=== PATIENT | female | born 1985 | race Caucasian/White ===

== ENCOUNTER 2020-12-05 08:25 | Emergency (ER) | payer BC, SELFPAY ==
[2020-12-05 08:36] VITALS: BP 131/73; PULSE 90; RESP 16; TEMP 36.4; O2SAT 99
--- NOTE | 2020-12-05 08:50 | ED.NAVMDI ---
HPI - Nausea/Vomiting/Diarrhea General Chief complaint: Abdominal Pain Stated complaint: abd pain/diarrhea Time Seen by Provider: 12/05/20 08:51 Source: patient and RN notes reviewed Mode of arrival: ambulatory Limitations: no limitations History of Present Illness HPI Narrative: 35-year-old female presents concern for 5 hours of vomiting and diarrhea. Reports symptoms started this morning. Reports several episodes of vomiting and watery stools. She denies fever, abdominal pain, body aches, chills, sweats. Reports she ate a salad from a restaurant yesterday, otherwise has not eaten anything unusual. Denies anyone else at home has similar symptoms. MD elicited complaint: vomiting Related Data Allergies Allergy/AdvReac Type Severity Reaction Status Date / Time Sulfa (Sulfonamide Allergy Mild Verified 12/05/20 08:53 Antibiotics) sulfamethoxazole Allergy Mild Verified 12/05/20 08:53 cephalexin Allergy Unknown Hives Verified 12/05/20 08:53 sulfamethizole Allergy Unknown Hives Verified 12/05/20 08:53 trimethoprim Allergy Unknown Hives Verified 12/05/20 08:53 Review of Systems Review of Systems: Narrative: CONSTITUTIONAL: Denies malaise, chills, sweats, or fever. ENT: Denies rhinorrhea, congestion, sinus pain, otalgia or sore throat. CARDIOVASCULAR: Denies chest pain, palpitations, or edema. RESPIRATORY: Denies cough or dyspnea. GASTROINTESTINAL: Denies abdominal pain,bloody, or mucous stools. Reports nausea, vomiting, diarrhea, GENITOURINARY: Denies dysuria or hematuria. MUSCULOSKELETAL: Denies myalgia. NEUROLOGIC: Denies numbness, weakness, or headache. All systems reviewed & are unremarkable except as noted in HPI and below PMFSH Family History Family History Father Family history of mental disorder Patient's father is in good health Grandparent Hypertension Mother Patient's mother is in good health Social History Social History Smoking status: Current every day smoker Alcohol intake: current Gender identity (if verbalized by the patient): Female Comments At time of signature, agree with nursing past medical, surgical, social and family history. There is no relevant family history pertinent to the presenting complaint Exam Narrative: Exam Narrative: GENERAL: Well-appearing, well-nourished, and in no acute distress. HEAD: Normocephalic. EYES: PERRLA, conjunctivae clear. NECK: Supple. No lymphadenopathy CHEST: Clear to auscultation. No respiratory distress. HEART: Regular rate and rhythm. ABDOMEN: Soft, nontender upon palpation, nondistended, normal active bowel sounds, no palpable or pulsatile masses, no guarding. No CVA tenderness SKIN: Warm, dry, no rash. NEURO: Alert and oriented x3. PSYCH: Normal mood and affect Course Course Emergency Course: Patient is aware of diagnosis, understands and agrees to treatment plan. Anticipatory guidance given. Patient agrees to follow-up as directed and is aware of reasons to seek care at the emergency department. Portions of this record may have been created with voice recognition software Vital Signs Vital signs: Vital Signs Temperature 97.6 F 12/05/20 08:36 Pulse Rate 90 12/05/20 08:36 Respiratory Rate 16 12/05/20 08:36 Blood Pressure 131/73 12/05/20 08:36 Pulse Oximetry 99 12/05/20 08:36 Temperature 97.6 F 12/05/20 08:36 Pulse Rate 90 12/05/20 08:36 Respiratory Rate 16 12/05/20 08:36 Blood Pressure 131/73 12/05/20 08:36 Pulse Oximetry 99 12/05/20 08:36 Reviewed. MDM - Nausea/Vomiting/Diarrhea MDM Narrative Medical decision making narrative: No evidence of pancreatitis, AAA, cholecystitis, choledocholithiasis, cholangitis, mesenteric ischemia, small bowel obstruction, diverticulitis, colitis, appendicitis, or pelvic etiology such as ovarian/testicular torsion, TOA, or ectopic . Patient casiano
== END 2020-12-05 09:06 | disposition home or self-care (01) ==
PROVIDERS: Emergency Provider Nurse Practitioner
DX: R11.2 Nausea with vomiting, unspecified (principal); R19.7 Diarrhea, unspecified; F17.200 Nicotine dependence, unspecified, uncomplicated
CPT/HCPCS: 99213; G0463

== ENCOUNTER 2023-07-02 13:17 | Outpatient (CLI) | payer BC, SELFPAY | END 2023-07-02 13:18 | disposition home or self-care (01) | PROVIDERS: Visit Provider Obstetrics & Gynecology | DX: N92.0 Excessive and frequent menstruation with regular cycle (principal); Z01.818 Encounter for other preprocedural examination | CPT/HCPCS: 36415; 86850; 86900; 86901 ==

== ENCOUNTER 2023-07-09 02:27 | Day surgery (SDC) | payer BC, SELFPAY ==
[2023-07-02 12:52] VITALS: BMI 33.5
--- NOTE | 2023-07-02 12:58 | PC.NURSE ---
Report to the Outpatient Waiting Room, entrance under the green pavilion located off [facility], at time 6:00 on date 07/09/23. Planned Procedure Time: 7:30. Time changes happen often and if your time is changed the preop area will call you the afternoon before. - You and your visitor will be asked to self-screen and do not enter if you have any COVID symptoms. - A mask is optional within the hospital at this time. Patients may have clear liquids (water, carbonated beverages, clear teas, apple juice) until 3 hours prior to surgery (4:30) with a maximum of 20 ounces. - No food from midnight until time of surgery Take the following medications with a SIP of water the morning of surgery: NONE DO NOT STOP ANY OF YOUR OTHER PRESCRIPTION MEDICATIONS PRIOR TO SURGERY ?EXCEPT THE FOLLOWING Medications to discontinue per physician: N/A Date to take last dose: N/A Please no make-up, nail guamanian, hairspray, perfume, deodorant, or body powder the day of surgery. No jewelry (including any body piercings) or valuables the day of surgery, leave them at home. Please take a shower or bath the night before, or the morning of, surgery with an antibacterial soap. Wear comfortable, loose fitting clothing. - Jewelry must be removed prior to entering the operating room. Rings and piercings that are not removed may be cut off. - The hospital will not accept responsibility for valuables. - Please leave all valuables, including medications, at home the day of surgery. If you are going home after surgery, a licensed box truck driver must drive you home. - NO public transportation without another adult if you receive anesthesia. - We recommend that an adult stay with you for 24 hours following discharge. - We also recommend that you do not drive, make important decision, drink alcoholic beverages, or take any drugs that were not prescribed by your health care provider for at least 24 hours after your discharge time. Follow any additional instructions given to you from your surgeon. If you or anyone in your household have experienced Covid symptoms in the past week, please notify your surgeon or the nurse liaison at the phone number below for possible testing. Telephone instructions given to PT - JORDYN KUMAR and asked if any additional questions and then verbalized understanding. Patient advised to call surgeon office or pre surgery nurse liaison [phone] if any additional questions.
--- NOTE | 2023-07-08 14:02 | WPDANESEPPF ---
Anes - Initial Pre Proc Eval Procedure: Operation Date: 07/09/23 07:30 Proposed Procedures p Robotic Assisted Hysterectomy with Bilateral Salpingectomy - Adore Schwab MD Date/Time: 07/08/23 14:02 Surgeon: Adore Schwab MD Pre Op Diagnosis: menorrhagia Patient Data Age: 37 Gender: F Height: 1.7 m Weight: 97 kg Allergies Allergy/AdvReac Type Severity Reaction Status Date / Time Sulfa (Sulfonamide Allergy Mild Hives Verified 07/02/23 12:51 Antibiotics) sulfamethoxazole Allergy Mild Hives Verified 07/02/23 12:51 cephalexin Allergy Unknown Hives Verified 07/02/23 12:51 sulfamethizole Allergy Unknown Hives Verified 07/02/23 12:51 trimethoprim Allergy Unknown Hives Verified 07/02/23 12:51 Home Medications Medication Instructions Recorded Confirmed Type cetirizine 10 mg tablet (Zyrtec) 10 mg PO DAILY 07/02/23 07/09/23 History dextromethorphan-guaifenesin ER 60 1 tablet PO Q12H PRN Sinus Symptoms 07/02/23 07/09/23 History mg-1,200 mg tab,extend release,12hr (Mucinex DM) Patient hx anesthesia problems: none Family hx anesthesia problems: none Results Review: All pre-operative results and documents have been reviewed as part of the pre-operative evaluation. [facility] Family History Family History Father Family history of mental disorder Patient's father is in good health Grandparent Hypertension Mother Patient's mother is in good health Social History Social History Years smoked: 20 Smoking status: Current every day smoker Tobacco type: cigarettes Alcohol intake: current Alcohol use details: VERY RARE Substance use: never Substance use type: does not use Living arrangements: with family Gender identity (if verbalized by the patient): Female Spiritual care concerns: No Anes - Eval Final PreProcedure Day of Procedure 07/08/23 14:02 Patient weight: obese Heart: regular rate and rhythm Lungs: clear to auscultation Airway: Mallampati scale class II Neurological: alert and oriented Last oral intake: >/= 8 hours ASA classification: II Emergent: no Anesthetic plan: proceed Anesthesia type and monitoring: general ETT and standard monitoring Results Review: All pre-operative results and documents have been reviewed as part of the pre-operative evaluation. Informed Consent: The patient's anesthetic plan and its attendant risks and benefits were discussed with the patient/family/POA. Questions were solicited and answers provided to the satisfaction of the patient/family/POA.
[2023-07-09] VITALS (12 sets, daily range): BP systolic 104–143; BP diastolic 54–89; PULSE 64–88; RESP 14–20; TEMP 36.3–37.1; O2SAT 97–100
[2023-07-09] MEDS: ACETAMINOPHEN 500 MG TABLET 1000 MG PO (06:26)
[2023-07-09] MEDS: LACTATED RINGERS 1,000 ML 30 ML IV CONT ×2 (07:10→09:49)
[2023-07-09] MEDS: KETOROLAC 15 MG/ML VIAL (*BKC) IV PUSH (07:12)
--- NOTE | 2023-07-09 07:13 | WPDHPUPDATE1 ---
History and Physical Update Update Date/Time: 07/09/23 07:13 History and Physical has been reviewed, including an updated exam of the patient. There are NO changes in the patient's condition. Risks, benefits, and alternatives have been discussed and questions answered. Patient agrees to proceed with procedure.
[2023-07-09] MEDS: CLINDAMYCIN 900 MG/D5W 50 ML 900 MG/50 ML PIGGYBACK 50 MG IVPB (07:30)
[2023-07-09] MEDS: GENTAMICIN SULFATE INJ 375 MG in DEXTROSE 5% 100 ML 109.38 MG IVPB (07:40)
--- NOTE | 2023-07-09 09:58 | W.PM.PROC2 ---
Procedure Note - Detailed Date of Procedure 07/09/23 Pre-op Diagnosis Pelvic pain Post-op Diagnosis Same (Endometriosis) Procedure Performed Robot assisted Total hysterectomy with bilateral salpingectomy. Surgeon Aodre Schwab MD Anesthesia General Indications heavy vaginal bleeding, pelvic pain Findings Diffuse scarring and endometriosis throughout the pelvis, rectum adherent to anterior lower pelvis with posterior deep cul-de-sac obliterated. 4-5 endometrial implants in the anterior compartment, normal-appearing ovaries. Description of Procedure This patient was taken to the operating room. She was prepped and draped in the dorsal lithotomy position after induction of general anesthesia. The uterine manipulator and Adrianna cup were placed. This was done with a speculum and tenaculum. The speculum was placed. The cervix was grasped with a tenaculum. The stay sutures were placed at 3 and 9:00 a.m.. The stay sutures of 0 Vicryl were tied to the appropriately Size scope after it was slipped around the cervix.. The tip of the ARMOND manipulator was placed in the intrauterine cavity. The cup was slid into place around the cervix and into the fornices. It was locked into place. The sutures were then wrapped around the handle and tied under tension. A 8 mm skin incision was made in the left upper quadrant the abdomen. a 5 mm Visiport trocar was inserted into abdominal cavity and pneumoperitoneum was achieved. A 8 mm supraumbilical incision was made and a 8 mm trocar was inserted into the intrauterine cavity under direct visualization of the scope. an 8 mm incision was made in the right upper quadrant of the abdomen and an 8 mm robotic trocar was placed the inter uterine cavity under direct visualization the scope. An 11 mm trocar was inserted in the right upper quadrant of the abdomen rectal is a cystoscope after an incision was made there as well. The robot was docked. Electronic Orientation of the robot was performed. Bilateral ureteral lysis was performed. This was done from the pelvic brim down to the uterine artery. This was done with careful dissection using sharp and blunt dissection. The fallopian tubes were removed bilaterally. The mesosalpinx around the fallopian tubes were cauterized transected with LigaSure cautery. This was done in a bilateral fashion from the ovary to the uterine cornua. The fallopian tube was transected at the uterine cornu and amputated. The tube was taken out the left lower quadrant trocar site. In a stepwise fashion along the lateral aspects of the uterus the round ligament and broad ligaments were cauterized transected down to the level of the uterine arteries. A bladder flap was created in the bladder was moved distally to the end of the cervix and over the Adrianna cup. The bilateral uterine arteries were cauterized and transected. Colpotomy was then performed. In a circumferential fashion the vagina was transected using unipolar cautery. The incision was made down on the Adrianna cup. The uterus and cervix were taken out through the vagina. A pneumo occluder was placed in the vagina. The vaginal cuff was closed with a 0 V lock suture in a running fashion. The pelvis was irrigated with copious amounts antibiotic irrigation. The ureters were again examined and found to be intact and flowing freely under the uterine arteries into the bladder. The bladder was intact. It was examined directly. The vagina was irrigated with Betadine solution after removal of the Pneumo occluder. the trocars were removed after the robot was undocked. The skin was closed with subacute or Dermabond. The patient was taken to recovery room. She was stable condition. Sponge lap and needle counts were correct x2. Estimated Blood Loss -25.0 Urine Output -50.0 Drains Yes Packing No Pathology Yes Complications No immediate complications Condition Stable Disposition Floor
[2023-07-09] MEDS: ONDANSETRON INJ 4 MG/2 ML VIAL IV PUSH (10:29)
[2023-07-09] MEDS: diphenhydrAMINE HCl INJ 50 MG/ML VIAL 25 MG IV PUSH ×2 (10:41→10:54)
[2023-07-09] MEDS: SCOPOLAMINE 1.5 MG PATCH TRANSDERM (10:43)
[2023-07-09] MEDS: DEXTROSE 5%/0.45% SOD CHL 1,000 ML 125 ML IV CONT (11:47)
--- NOTE | 2023-07-09 11:49 | OBPPTRN ---
1119 Patient transferred to post room #289 via bed. Support person present. Oriented to unit, room, information board, rooming in, admission packet and security measures. Patient verbalizes understanding.
[2023-07-09] MEDS: KETOROLAC 30 MG/ML VIAL (*BKC) IV PUSH (16:00)
[2023-07-09] MEDS: HYDROcodone/acetaminophen (*CRX) 5-325 MG TABLET 1 TAB PO (20:31)
[2023-07-10 03:54] VITALS: BP 107/62; PULSE 90; TEMP 36.7; O2SAT 98
[2023-07-10] MEDS: HYDROcodone/acetaminophen (*CRX) 5-325 MG TABLET 1 TAB PO ×2 (07:27→12:14)
[2023-07-10] MEDS: IBUPROFEN 600 MG TABLET PO (07:27)
[2023-07-10 07:29] VITALS: BP 120/73; PULSE 81; RESP 18; TEMP 36.9; O2SAT 100
[2023-07-10] MEDS: SIMETHICONE 80 MG TAB.CHEW PO (07:29)
--- NOTE | 2023-07-10 10:09 | WPDANESPN ---
Anes - Prog Note Post-Op Date/Time: 07/10/23 10:09 Cardiovascular status: normal Respiratory status: normal Airway patency: baseline Mental status: baseline Post-Op hydration status: normal Vital Signs: Last Vital Signs Temp 36.7 C 07/10/23 03:54 Pulse 90 07/10/23 03:54 Resp 18 07/09/23 19:00 BP 107/62 07/10/23 03:54 Pulse Ox 98 07/10/23 03:54 O2 Del Method Room Air 07/10/23 04:10 O2 Flow Rate 10 07/09/23 10:00 Pain Score (VAS): 210 I/O: Intake & Output 07/09/23 07/10/23 07/10/23 23:59 07:59 15:59 Intake Total 1000 1100 Output Total 2500 400 Balance -1500 700 Post-procedural complaints: nausea (nausea in PACU. treated effectively. ) Patient Feedback: Patient satisfied with anesthetic care.
--- NOTE | 2023-07-10 10:37 | PM.GYNPNOP ---
COAT AGENT - A/P Postoperative Procedures: Procedures Operation Date: 07/09/23 07:30 Actual Procedure Side Surgeon p Robotic Assisted Hysterectomy with Bilateral Salpingectomy Bilateral Adore Schwab MD Postoperative day: 1 Postoperative status: doing well Postoperative plan: see orders Time Spent With Patient Time: Total time spent is greater than 50% in coordination of care (as documented) at patient's floor/unit and/or counseling patient: Time with patient: less than 15 minutes COAT AGENT- PN:Subj Post-Op Subjective Date/time seen: 07/10/23 10:37 Subjective: patient reports feeling better, patient has no complaints and pain is well controlled Exam Const: General: healthy appearing, comfortable and no acute distress Resp: Auscultation: clear to auscultation bilaterally, no rales, no rhonchi and no wheezes Cardio: Rate: regular rate Heart sounds: no click, no murmurs and no rubs GI: Inspection: non-distended Auscultation: normal bowel sounds Extrem: General: normal to inspection, no pedal edema and no calf tenderness COAT AGENT - PN: Obj Data Vital Signs Vital Signs: Vital Signs - 24 hr 07/09/23 11:00 07/09/23 11:10 07/09/23 10:45 Temperature Pulse Rate 82 67 65 Respiratory Rate 14 20 20 Blood Pressure 135/84 143/86 H 130/79 Pulse Oximetry 100 100 99 Oxygen Delivery Room Air Room Air Room Air 07/09/23 11:50 07/09/23 19:00 07/09/23 20:04 Temperature 97.3 F L Pulse Rate 64 Respiratory Rate 16 Blood Pressure 126/84 Pulse Oximetry 100 Oxygen Delivery Room Air Room Air 07/09/23 16:00 07/09/23 16:00 07/09/23 19:00 Temperature 98.8 F 97.6 F Pulse Rate 81 75 Respiratory Rate 18 18 Blood Pressure 136/82 110/66 Pulse Oximetry 97 99 Oxygen Delivery Room Air 07/09/23 23:50 07/10/23 00:00 07/10/23 03:54 Temperature 98.2 F 98.1 F Pulse Rate 77 90 Respiratory Rate Blood Pressure 104/54 L 107/62 Pulse Oximetry 98 98 Oxygen Delivery Room Air 07/10/23 04:10 Temperature Pulse Rate Respiratory Rate Blood Pressure Pulse Oximetry Oxygen Delivery Room Air Intake/Output Intake/Output: Intake & Output 07/07/23 07/08/23 07/09/23 07/10/23 23:59 23:59 23:59 23:59 Intake Total 2279.375 1100 Output Total 2500 400 Balance -220.625 700 Meds/Results Medications: Active Medications Generic Name Dose Route Start Last Admin Trade Name Freq PRN Reason Stop Dose Admin Acetaminophen 650 mg 07/09/23 11:14 Acetaminophen 325 Mg Tablet PO Q6H PRN Mild Pain (1-3) Hydrocodone Bitart/Acetaminophen 1 tab 07/09/23 11:14 Hydrocodone/Acetaminophen (*Crx) 10-325 Mg Tablet PO Q3H PRN Pain Rated 7-10 Hydrocodone Bitart/Acetaminophen 1 tab 07/09/23 11:14 07/10/23 07:27 Hydrocodone/Acetaminophen (*Crx) 5-325 Mg Tablet PO 1 tab Q3H PRN Administration Moderate Pain (4-6) Bisacodyl 10 mg 07/09/23 11:14 Bisacodyl 10 Mg Suppository RECTAL ONCE PRN Constipation Emollient Ointment 1 applic 07/09/23 11:14 Lanolin (Lansinoh) 7.5 Gm Cream TOPICAL PRN PRN Sore Nipples Dextrose/Sodium Chloride 1,000 mls @ 125 mls/hr 07/09/23 11:14 07/09/23 19:47 Dextrose 5% Sodium Chloride 0.45% IV CONT Infused .Q8H GA Infusion Potassium Chloride/Dextrose/Sod Cl 1,000 mls @ 125 mls/hr 07/09/23 11:14 Kcl 20 Meq/D5/0.45% Sod Chl IV CONT .Q8H GA Ibuprofen 600 mg 07/09/23 11:14 07/10/23 07:27 Ibuprofen 600 Mg Tablet PO 600 mg Q6H PRN Administration Cramping Ketorolac Tromethamine 30 mg 07/09/23 11:14 07/09/23 16:00 Ketorolac 30 Mg/Ml Vial (*Bkc) IV PUSH 30 mg Q6H PRN Administration Pain Rated 4-6 Naloxone HCl 0.1 mg 07/09/23 11:14 Naloxone Hcl 0.4 Mg/Ml Vial IV PUSH Q2M PRN Opiate Reversal Ondansetron HCl 4 mg 07/09/23 11:14 Ondansetron Inj 4 Mg/2 Ml Vial IV PUSH Q6H PRN Nausea Vit/Calcium/Iron/Folic Ac 1 tab 07/10/23
== END 2023-07-10 14:59 | disposition home or self-care (01) ==
LOC: ANHSURGERY 10:45 → ANHOB2 11:17
PROVIDERS: Visit Provider Obstetrics & Gynecology
PROC: (CPT 58571; principal; 2023-07-09 07:30)
DX: N80.00 Endometriosis of the uterus, unspecified (principal); N80.03 Adenomyosis of the uterus
CPT/HCPCS: 58571; S2900; 88307; 99199; A9270; J1100; J1170; J1200; J1580; J1885; J2250; J2405; J2704; J3010; J7030; J7120

== ENCOUNTER 2023-07-23 17:37 | Inpatient (IN) | payer BC, SELFPAY ==
--- NOTE | ~2023-07-23 | CT_ITS ---
EXAMINATION: CT abdomen pelvis w con DATE: 07/24/2023 09:05 INDICATION: Abdominal pain TECHNIQUE: Computed tomography (CT) of the abdomen and pelvis was performed with 100 mL Omnipaque-350 intravenous contrast. Automated exposure control and iterative reconstruction technique were employe d. The dose-length product was 1061.21 mGy-cm. COMPARISON: None FINDINGS: Mild dependent atelectasis in the bilateral lower lobes. Arch size is normal. No pericardial or pleur al effusion. A few subcentimeter low-attenuation likely cysts scattered throughout the liver which ar e too small to definitively characterize. Gallbladder, spleen, pancreas, bilateral adrenal glands and kidneys are normal. Bladder is normal. The uterus is not identified and there is trace amount of flu id and mild stranding at the uterine fossa likely relate to the reported recent hysterectomy. No free intraperitoneal gas or loculated fluid collections to suggest hematoma or abscess.. Bilateral adnexa are unremarkable. Bowels including the appendix are normal. Small fat-containing umbilical hernia. N o pathologically enlarged abdominal or pelvic lymphadenopathy. Subtle stranding along a laparoscopy p ort tracks in the anterior abdominal wall. L3-L5 anterior spinal fusion with interbody fusion devices . L5 is sacralized bilaterally. IMPRESSION: 1. Trace amount of fluid and mild stranding at the uterine fossa consistent with reported history of recent hysterectomy. No other acute intra-abdominal/pelvic process. Reviewed, dictated and finalized at location A. [facility] IMPRESSION: 1. Trace amount of fluid and mild stranding at the uterine fossa consistent wit h reported history of recent hysterectomy. No other acute intra-abdominal/pelvi c process.
--- NOTE | 2023-07-23 18:00 | ADMGEN ---
This patient, Shirlene Price, was admitted to 2 Medical Room 254-01. Patient/family oriented to hospital policies and general routines including ID bracelet, bed and alarms, visiting hours, pain management, procedures, bathroom and other care routines, personal items, smoking policy, room service/diet, and visiting hours. Information on how to activate the Rapid Response Team has been discussed. Patient/Family are encouraged to report perceived risks to care and to ask questions if they do not understand what they are told or what they should do.
[2023-07-23 18:15] VITALS: BP 130/78; PULSE 81; RESP 16; TEMP 37.3; O2SAT 100
[2023-07-23 18:19] VITALS: BMI 34.3
[2023-07-23 18:28] VITALS: PULSE 68; RESP 18; O2SAT 98
[2023-07-23 19:52] VITALS: BP 115/66; PULSE 73; RESP 16; TEMP 36.7; O2SAT 99
[2023-07-23 20:00] VITALS: PULSE 73; RESP 16; O2SAT 99
[2023-07-23] MEDS: SODIUM CHLORIDE 0.9% IV 1,000 ML 125 ML IV CONT (20:36)
[2023-07-23] MEDS: oxyCODONE/ACETAMINOPHEN (*CRX) 5-325 MG TABLET 1 TABLET PO (23:36)
--- NOTE | 2023-07-24 00:07 | PC.NURSE ---
Pt called me into the bathroom to observe spotting. Found a small amount in toilet. Pt is also still cramping even after a dose of pain medication. Advised to walk around if comfortable.
[2023-07-24] MEDS: oxyCODONE/ACETAMINOPHEN (*CRX) 5-325 MG TABLET 1 TABLET PO ×4 (03:29→22:52)
[2023-07-24] MEDS: SODIUM CHLORIDE 0.9% IV 1,000 ML 125 ML IV CONT ×2 (03:29→15:37)
[2023-07-24 05:35] VITALS: BP 120/64; PULSE 79; RESP 16; TEMP 36.5; O2SAT 98
[2023-07-24 05:54] LABS: Basophils Absolute Auto 0.1 K/mm3 (0.0-0.1); Basophils Percent Auto 0.6 % (0.2-1.2); Eosinophils Absolute Auto 0.3 K/mm3 (0-0.3); Eosinophils Percent Auto 3.7 % (0-4.4); Hemoglobin 11.8 g/dL (12.0-15.0); Immature Granulocyte Absolute 0.02 K/mm3 (0.00-0.031); Immature Granulocyte Percent A 0.2 % (0-0.5); Lymphocytes Absolute Auto 3.12 K/mm3 (0.9-3.2); Lymphocytes Percent Auto 38.8 % (18.3-44.2); Mean Corpuscular HGB Conc 32.8 g/dl (32-36); Mean Corpuscular Hemoglobin 29.6 pg (26-34); Mean Corpuscular Volume 90.5 fl (80-100); Mean Platelet Volume 12.1 fl (7.4-10.4); Monocytes Absolute Auto 0.6 K/mm3 (0.1-0.6); Monocytes Percent Auto 7.2 % (2.6-8.5); Neutrophils Percent Auto 49.5 % (45.5-73.1); Platelet Count Result 176 k/mm3 (150-375); Red Blood Count 3.98 M/mm3 (4.2-5.4); White Blood Count 8.1 K/mm3 (4.5-10.0)
[2023-07-24 06:02] LABS: Alanine Aminotransferase 46 U/L (6-35); Albumin Level 3.2 g/dL (3.5-5.1); Alkaline Phosphatase 65 U/L (38-126); Anion Gap 4 mmol/L (8-16); Aspartate Amino Transferase 27 U/L (14-36); Bilirubin,Total 0.2 mg/dL (0.2-1.3); Blood Urea Nitrogen 13 mg/dL (7-17); Calcium 8.8 mg/dL (8.4-10.2); Carbon Dioxide 25 mmol/L (22-30); Chloride 110 mmol/L (98-107); Estimated CRCL calculation 100 ml/min; Estimated Glomerular Filt Rate > 60; Glucose 101 mg/dL (65-110); Potassium 4.1 mmol/L (3.4-5.0); Sodium 139 mmol/L (137-145)
--- NOTE | 2023-07-24 08:07 | PM.IMHP ---
H&P: HPI History of Present Illness Date/Time: 07/24/23 08:07 Chief Complaint: 37-year-old female who is 2 weeks postop from a total laparoscopic hysterectomy. She has severe lower abdominal cramping. Initially was with bowel movements and now intermittently great frequency, Multiple times an hour. She denies any nausea, vomiting, fever, chills. She denies any chest pain shortness of breath. She denies any vaginal bleeding. She does have hattie blood in her urine now. She denies any diarrhea. She had pain with bowel movements for some time , 1-2 weeks, and this existed some prior to the surgery. she denies regular bowel movements well formed stools. Review of Systems Review of Systems: All systems reviewed & are unremarkable except as noted in HPI and below Constitutional: Constitutional: Denies chills, Denies fatigue, Denies fever(s) and Denies weakness Eyes: Eyes: Denies blurry vision, Denies change in vision, Denies loss of peripheral vision, Denies loss of vision, Denies other visual disturbances and Denies eye pain ENT: Denies vertigo, Denies dizziness, Denies hearing loss, Denies mouth pain, Denies nasal obstruction, Denies neck mass and Denies neck pain Cardiovascular: Cardiovascular: Denies chest pain, Denies diaphoresis, Denies syncope, Denies leg edema and Denies dyspnea Respiratory: Respiratory: Denies chest congestion, Denies cough, Denies hemoptysis, Denies dyspnea and Denies wheezing Gastrointestinal: Gastrointestinal: Denies abdominal pain, Denies constipation, Denies diarrhea, Denies nausea and Denies vomiting Genitourinary: Genitourinary: Denies hematuria, Denies change in libido, Denies nocturia, Denies genital lesions, Denies flank pain and Denies urinary urgency Musculoskeletal: Musculoskeletal: Denies abnormal gait, Denies back pain, Denies myalgias, Denies arthralgias, Denies joint swelling, Denies muscle weakness and Denies neck pain Integumentary/Breasts: Skin/Breast: Denies swelling, Denies breast pain, Denies breast mass, Denies dry skin, Denies nipple discharge, Denies unusual bruising and Denies jaundice Neurologic: Denies Neuro-related abnormal movements, Denies Abnormal speech present, Denies abnormal gait, Denies behavioral changes, Denies confusion, Denies vertigo, Denies dizziness, Denies syncope, Denies loss of vision, Denies memory loss, Denies convulsions and Denies weakness Psychiatric: Psychiatric: Denies abnormal sleep pattern, Denies behavioral changes, Denies change in libido, Denies confusion, Denies depression, Denies anhedonia and Denies memory loss Endocrine: Endocrine: Reports no additional endocrine complaints, Denies change in libido and Denies fatigue Hematologic/Lymphatic: Hematologic/Lymphatic: Reports no additional hematologic/lymphatic complaints Allergic/Immunologic: Allergic/Immunologic: Reports no additional allergic/immunologic complaints and Denies wheezing PMFSH Family History Family History Father Family history of mental disorder Patient's father is in good health Grandparent Hypertension Mother Patient's mother is in good health Social History Social History Years smoked: 20 Smoking status: Current every day smoker Tobacco type: cigarettes Alcohol intake: never Alcohol use details: VERY RARE Substance use: never Substance use type: does not use Lack of Transportation: No Lack of Food: Never True Current Housing: I Have Housing Concerned About Future Housing: No Difficulty Paying Gas/Electric Bills: No Difficulty Paying for Meds: No Currently Unemployed: No Education: High School Diploma/GED Difficulty w/ Childcare or Family Care: No Living arrangements: with family Gender identity (if verbalized by the patient): Female Spiritual care concerns: No Meds Home Medications and Allergies Home Medications Medi
--- NOTE | 2023-07-24 08:40 | WPDGICN ---
Assessment and Plan Assessment and plan (1) Abdominal pain: Code(s): R10.9 - Unspecified abdominal pain Status: Acute Assessment and Plan: this pain is postoperative. She describes what sounds like a somewhat involved surgical procedure. Unfortunately the pain actually is getting worse instead of better , contrary to what 1 would expect. It was initially associated with bowel movements but is continuous now. She has softer stools but has used some laxatives thinking he would give her relief. There has b (2) Endometriosis: Code(s): N80.9 - Endometriosis, unspecified Status: Acute Assessment and Plan: This was diagnosed at the time of her recent hysterectomy. She also had her left ovary removed at that time. Endometrial tissue was seen on her sigmoid colon. Plan She is scheduled for CT scan. I will order a stool for occult blood. I told her that I do not think that she is going to need a colonoscopy at this time. GI Consult Note Consult date/time: 07/24/23 08:40 HPI: Shirlene Price is a 37 year old female Who underwent a hysterectomy about 2 weeks ago. She states that she was found at that time to have endometriosis which was unknown prior to that. It required removal of endometrial tissue from her colon and other structures. Since then time she has had cramping in her lower abdomen. Is a tight sensation and burning sensation across the pelvis. It was generally worse prior to a bowel movement and during a bowel movement it would seem does let up afterwards. Now however for the past couple of days it is constant. She has taken laxatives thinking that would help. Her stools have been soft. She has had no blood her stools. Prior to this she had no problems with bowel movements. She has had no other gastrointestinal symptoms such as nausea vomiting severe heartburn dysphagia or chronic abdominal pains. She was ordering breakfast as I examine her and states that she has a good appetite and is hungry. Review of Systems Review of Systems: All systems reviewed & are unremarkable except as noted in HPI and below [facility] Family History Family History Father Family history of mental disorder Patient's father is in good health Grandparent Hypertension Mother Patient's mother is in good health Social History Social History Years smoked: 20 Smoking status: Current every day smoker Tobacco type: cigarettes Alcohol intake: never Alcohol use details: VERY RARE Substance use: never Substance use type: does not use Lack of Transportation: No Lack of Food: Never True Current Housing: I Have Housing Concerned About Future Housing: No Difficulty Paying Gas/Electric Bills: No Difficulty Paying for Meds: No Currently Unemployed: No Education: High School Diploma/GED Difficulty w/ Childcare or Family Care: No Living arrangements: with family Gender identity (if verbalized by the patient): Female Spiritual care concerns: No Meds Home Medications and Allergies Home Medications Medication Instructions Recorded Confirmed Type cetirizine 10 mg tablet (Zyrtec) 10 mg PO DAILY 07/02/23 07/23/23 History dextromethorphan-guaifenesin ER 60 1 tablet PO Q12H PRN Sinus Symptoms 07/02/23 07/23/23 History mg-1,200 mg tab,extend release,12hr (Mucinex DM) oxycodone-acetaminophen 5 mg-325 1 tablet PO Q4H PRN pain #25 tabs 07/10/23 07/23/23 Rx mg tablet Allergies Allergy/AdvReac Type Severity Reaction Status Date / Time Sulfa (Sulfonamide Allergy Mild Hives Verified 07/23/23 18:16 Antibiotics) sulfamethoxazole Allergy Mild Hives Verified 07/23/23 18:16 cephalexin Allergy Unknown Hives Verified 07/23/23 18:16 sulfamethizole Allergy Unknown Hives Verified 07/23/23 18:16 trimethoprim Allergy Unknown Hives Verified 07/23/23 18:16
[2023-07-24] MEDS: metroNIDAZOLE 500 MG/ISO 100ML 500 MG/100 ML BAG 100 MG IVPB ×2 (09:18→17:11)
[2023-07-24 09:19] VITALS: RESP 16; O2SAT 98
[2023-07-24] MEDS: LORATADINE 10 MG TABLET PO (09:19)
[2023-07-24] MEDS: CIPROFLOXACIN 400 MG/D5W 200ML 200 ML 200 MG IVPB ×2 (10:28→22:52)
[2023-07-24 11:24] VITALS: PULSE 79; RESP 16; O2SAT 98
--- NOTE | 2023-07-24 12:56 | PC.NURSE ---
On 07/24/23, the student, [Ever Domínguez], provided care and completed [facility] documentation on this patient. I have reviewed the student's documentation and agree with the findings.
[2023-07-24 14:18] VITALS: BP 127/78; PULSE 68; RESP 18; TEMP 37; O2SAT 100
[2023-07-24 18:47] LABS: IFOB Positive Control Positive; Immunochemical Fecal Occult Bl Positive (N)
[2023-07-24 22:00] VITALS: BP 119/69; PULSE 85; RESP 14; TEMP 36.2; O2SAT 100
[2023-07-25] MEDS: metroNIDAZOLE 500 MG/ISO 100ML 500 MG/100 ML BAG 100 MG IVPB ×3 (02:57→17:55)
[2023-07-25 04:03] VITALS: BP 130/92; PULSE 72; RESP 18; TEMP 36.1; O2SAT 100
[2023-07-25] MEDS: LORATADINE 10 MG TABLET PO (09:34)
[2023-07-25] MEDS: CIPROFLOXACIN 400 MG/D5W 200ML 200 ML 200 MG IVPB ×2 (09:35→21:16)
[2023-07-25] MEDS: ONDANSETRON INJ 4 MG/2 ML VIAL IV PUSH (10:51)
--- NOTE | 2023-07-25 13:21 | PM.GYNPNOP ---
CENTRAL SUPPLY ASSISTANT - A/P Time Spent With Patient Time: Total time spent is greater than 50% in coordination of care (as documented) at patient's floor/unit and/or counseling patient: Time with patient: 15 - 25 minutes CENTRAL SUPPLY ASSISTANT- PN:Nichelle Post-Op Subjective Date/time seen: 07/25/23 13:21 Nausea vomiting today, this is new, blood in her stool today , this is also new. normal CT yesterday, no evidence of abscess or hematoma. Urinary tract infections being treated with IV antibiotics. Await more information from gastrointestinal Consult. Continue observation and supportive care. CENTRAL SUPPLY ASSISTANT - PN: Obj Data Vital Signs Vital Signs: Vital Signs - 24 hr 07/24/23 14:18 07/24/23 20:00 07/24/23 22:00 Temperature 98.6 F 97.1 F L Pulse Rate 68 85 Respiratory Rate 18 14 Blood Pressure 127/78 119/69 Pulse Oximetry 100 100 Oxygen Delivery Room Air 07/25/23 04:03 07/25/23 09:40 Temperature 96.9 F L Pulse Rate 72 Respiratory Rate 18 Blood Pressure 130/92 H Pulse Oximetry 100 Oxygen Delivery Room Air Intake/Output Intake/Output: Intake & Output 07/22/23 07/23/23 07/24/23 07/25/23 23:59 23:59 23:59 23:59 Intake Total 3890 910 Balance 3890 910 Meds/Results Medications: Active Medications Generic Name Dose Route Start Last Admin Trade Name Freq PRN Reason Stop Dose Admin Acetaminophen 650 mg 07/23/23 19:30 Acetaminophen 325 Mg Tablet PO Q4H PRN Mild Pain (1-3) or Fever Cyclobenzaprine HCl 10 mg 07/25/23 12:24 Cyclobenzaprine Hcl 10 Mg Tablet PO Q8H PRN Muscle Spasm Sodium Chloride 1,000 mls @ 125 mls/hr 07/23/23 19:45 07/25/23 02:30 Normal Saline Iv IV CONT 125 mls/hr .Q8H GA Infusion Ciprofloxacin/Dextrose 200 mls @ 200 mls/hr 07/24/23 09:00 07/25/23 10:35 Cipro 400 Mg/D5w 200 Ml IVPB Infused Q12H GA Infusion Metronidazole 500 mg in 100 mls @ 100 mls/hr 07/24/23 10:00 07/25/23 11:51 Flagyl 500 Mg/Iso Soln 100 Ml IVPB Infused Q8H GA Infusion Loratadine 10 mg 07/24/23 09:00 07/25/23 09:34 Loratadine 10 Mg Tablet PO 10 mg DAILY GA Administration Ondansetron HCl 4 mg 07/23/23 19:30 07/25/23 10:51 Ondansetron Inj 4 Mg/2 Ml Vial IV PUSH 4 mg Q4H PRN Administration Nausea And Vomiting Oxycodone/Acetaminophen 1 tablet 07/23/23 19:29 07/24/23 22:52 Oxycodone/Acetaminophen (*Crx) 5-325 Mg Tablet PO 1 tablet Q4H PRN Administration Pain Rated 7-10 Radiology Results: ITS Impressions Abdomen/Pelvis CT 07/24/23 09:08 IMPRESSION: 1. Trace amount of fluid and mild stranding at the uterine fossa consistent with reported history of recent hysterectomy. No other acute intra-abdominal/pelvic process. Labs 07/24/23 05:40 07/24/23 05:40 Labs: Laboratory Results - last 24 hr 07/24/23 18:01 Stl Occult Blood (IFOB) Positive H
[2023-07-25] MEDS: CYCLOBENZAPRINE HCL 10 MG TABLET PO ×2 (13:28→23:09)
[2023-07-25 14:00] VITALS: BP 109/54; PULSE 68; TEMP 36.4; O2SAT 99
[2023-07-25] MEDS: SODIUM CHLORIDE 0.9% IV 1,000 ML 125 ML IV CONT (15:21)
[2023-07-25 17:50] LABS: Lipase 99 U/L (23-300)
--- NOTE | 2023-07-25 18:09 | WPDGIPROGNO ---
Progress Note: A&P Assessment and Plan (1) Abdominal pain: Code(s): R10.9 - Unspecified abdominal pain Status: Acute Assessment and Plan: this pain is postoperative, It was not there before surgery.. She describes what sounds like a somewhat involved surgical procedure. Unfortunately the pain actually is getting worse instead of better , contrary to what 1 would expect. It was initially associated with bowel movements but is continuous now. She has softer stools but has used some laxatives thinking That would give her relief. the pain has not changed today. Earlier it became more severe and that resulted in her becoming queasy diaphoretic and then she vomited. (2) Endometriosis: Code(s): N80.9 - Endometriosis, unspecified Status: Acute Assessment and Plan: This was diagnosed at the time of her recent hysterectomy. She also had her left ovary removed at that time. Endometrial tissue was seen on her sigmoid colon. (3) Hematochezia: Code(s): K92.1 - Melena Status: Acute Assessment and Plan: she saw some red blood her stools last night and this morning. A stool Hemoccult was positive. She had nothing prior to her surgery that would suggest inflammatory bowel disease. A colonoscopy may be necessary. She is however 2 nauseated now to even attempt a prep. (4) Nausea and vomiting: Code(s): R11.2 - Nausea with vomiting, unspecified Status: Acute Assessment and Plan: this is new today and began after she had somewhat of a vagal reaction when pain intensified. She had been started on metronidazole which also could cause some nausea. Ondansetron helped. I told her to feel free to ask for whenever she is queasy. Plan She is scheduled for CT scan. I will order a stool for occult blood. I told her that I do not think that she is going to need a colonoscopy at this time. The CT scan was negative for anything acute except that there was some slight pelvic fluid. No evidence of gastrointestinal disease on the scan. Watch for further bleeding. She may require at some point a colonoscopy. Her pain which is deep in the pelvis and bilateral I am certain is postoperative. I explained that there is not a digestive disease that would suddenly come on with pain like that without showing something on CT. Subjective Date/time seen: 07/25/23 18:09 Today she developed nausea and had some emesis this morning. She did not have that prior to admission. When she vomits she has excruciating pain in the pelvis. She receives Zofran this morning and has not asked for since. I switched to a clear liquid diet. She states that for lunch when she was on regular diet she only had soup and yogurt was afraid to eat the rest. Now her pain is back to baseline with constant discomfort in the lower abdomen. She also has seen blood her stools. She recall seen some last night when she was taking a shower and again this morning passed some blood. I performed Hemoccult that was positive for blood. She has no prior history of colitis. Her bowels have not changed. Her stools have been softer though she has been taking a stool softener since her surgery. Her family was present at bedside they stated there is no family history of intestinal disorders, colitis, etcetera. Exam Const: General: cooperative and healthy appearing Nutritional Appearance: overweight Orientation/consciousness: patient oriented x3 HENMT: Head: normal to inspection Ears: hearing grossly normal bilaterally Mouth: Yes Normal oral and palatal mucosa present Eyes: General: appearance normal, both eyes and all related structures Neck: Neck: normal visual inspection Chest: Chest palpation & inspection: normal inspection of the chest Resp: Effort & Inspection: normal respiratory effort Auscultation: clear to auscultation bilaterally Cardio: Rate: regular rate Rhythm: regular rhythm GI: Inspectio
[2023-07-25 19:35] VITALS: BP 123/71; PULSE 66; RESP 18; TEMP 36.8; O2SAT 98
[2023-07-26] MEDS: SODIUM CHLORIDE 0.9% IV 1,000 ML 125 ML IV CONT ×2 (01:20→09:53)
[2023-07-26] MEDS: metroNIDAZOLE 500 MG/ISO 100ML 500 MG/100 ML BAG 100 MG IVPB ×2 (01:20→10:41)
[2023-07-26 06:00] VITALS: BP 137/82; PULSE 71; RESP 18; TEMP 36.6; O2SAT 100
--- NOTE | 2023-07-26 09:03 | WPDGIPROGNO ---
Progress Note: A&P Assessment and Plan (1) Abdominal pain: Code(s): R10.9 - Unspecified abdominal pain Status: Acute Assessment and Plan: this pain is postoperative, It was not there before surgery.. She describes what sounds like a somewhat involved surgical procedure. Unfortunately the pain actually is getting worse instead of better , contrary to what 1 would expect. It was initially associated with bowel movements but is continuous now. She has softer stools but has used some laxatives thinking That would give her relief. the pain has not changed today. Earlier it became more severe and that resulted in her becoming queasy diaphoretic and then she vomited. although her pain persisted is more tolerable. She did sleep fairly well. No more vomiting (2) Endometriosis: Code(s): N80.9 - Endometriosis, unspecified Status: Acute Assessment and Plan: This was diagnosed at the time of her recent hysterectomy. She also had her left ovary removed at that time. Endometrial tissue was seen on her sigmoid colon. I will order ibuprofen for pain control which also may be helpful for pelvic inflammation. (3) Hematochezia: Code(s): K92.1 - Melena Status: Acute Assessment and Plan: she saw some red blood her stools last night and this morning. A stool Hemoccult was positive. She had nothing prior to her surgery that would suggest inflammatory bowel disease. A colonoscopy may be necessary. She is however 2 nauseated now to even attempt a prep. no bowel movement yet this morning and no further bleeding noted. I have ordered a procalcitonin to rule out infection. (4) Nausea and vomiting: Code(s): R11.2 - Nausea with vomiting, unspecified Status: Acute Assessment and Plan: this is new today and began after she had somewhat of a vagal reaction when pain intensified. She had been started on metronidazole which also could cause some nausea. Ondansetron helped. I told her to feel free to ask for whenever she is queasy. Plan She is scheduled for CT scan. I will order a stool for occult blood. I told her that I do not think that she is going to need a colonoscopy at this time. The CT scan was negative for anything acute except that there was some slight pelvic fluid. No evidence of gastrointestinal disease on the scan. Watch for further bleeding. She may require at some point a colonoscopy. Her pain which is deep in the pelvis and bilateral I am certain is postoperative. I explained that there is not a digestive disease that would suddenly come on with pain like that without showing something on CT. Subjective Date/time seen: 07/26/23 09:03 no vomiting since yesterday. She has tolerated liquid diet. She is willing to try eating solid food. Pelvic pain remains unchanged, steady pain occasionally searing, across the low abdomen/ pelvis. No bowel movement so far this morning. I have ordered Colace for her she said that when she awoke this morning she was sweaty as if breaking a fever. That was 1 time And has passed. Exam Const: General: cooperative, healthy appearing, alert and awake Nutritional Appearance: overweight Orientation/consciousness: patient oriented x3 HENMT: Head: normal to inspection Ears: hearing grossly normal bilaterally Mouth: Yes Normal oral and palatal mucosa present Eyes: General: appearance normal, both eyes and all related structures Neck: Neck: normal visual inspection Chest: Chest palpation & inspection: normal inspection of the chest Resp: Effort & Inspection: normal respiratory effort Auscultation: clear to auscultation bilaterally Cardio: Rate: regular rate Rhythm: regular rhythm GI: Inspection: normal to inspection Auscultation: normal bowel sounds Other: Surprisingly, she is not tender to palpation. She had a pain shot 3-1/2 hours prior to me seeing her and she had told me that the pain was b
[2023-07-26] MEDS: LORATADINE 10 MG TABLET PO (09:45)
[2023-07-26] MEDS: CIPROFLOXACIN 400 MG/D5W 200ML 200 ML 200 MG IVPB (09:45)
[2023-07-26] MEDS: DOCUSATE SODIUM 100 MG CAPSULE PO (09:45)
--- NOTE | 2023-07-26 13:18 | PM.GYNPNOP ---
GASKET FORMER - A/P Assessment and plan (1) Hematochezia: Code(s): K92.1 - Melena Status: Acute (2) Dyschezia: Code(s): K59.00 - Constipation, unspecified Status: Acute (3) Cystitis: Code(s): N30.90 - Cystitis, unspecified without hematuria Status: Acute (4) Abdominal pain: Code(s): R10.9 - Unspecified abdominal pain Status: Acute Plan Improved dyschezia, to discharge today with muscle relaxers and stool softener. Discussed treatment options in the future for endometriosis causing pain in the rectum and posterior vagina. Considering Lupron versus surgery. Time Spent With Patient Time: Total time spent is greater than 50% in coordination of care (as documented) at patient's floor/unit and/or counseling patient: Time with patient: 15 - 25 minutes GASKET FORMER- PN:Nichelle Post-Op Subjective Date/time seen: 07/26/23 13:18 Interval history: improved pain with BM today, associated with use of muscle relaxers. Tolerating p.o., no nausea, vomiting, fever, chills. Had a night sweat this morning. Exam Const: General: cooperative, healthy appearing, comfortable and no acute distress Orientation/consciousness: oriented to person, oriented to place and oriented to time HENMT: Head: normal to inspection Ears: external ears normal Face/Nose/Sinus: Normal external nose present and normal facial exam Face and sinus: normal facial exam Eyes: General: appearance normal, both eyes and all related structures Neck: Neck: normal visual inspection, trachea midline and supple Resp: Auscultation: clear to auscultation bilaterally, no crackles, no rales, no rhonchi and no wheezes Cardio: Rate: regular rate Rhythm: regular rhythm Heart sounds: no click, no murmurs and no rubs GI: GI Palp: No abdominal tenderness, No Soft to palpation, No Tenderness to palpation present (GI) and No Palpable mass present Auscultation: normal bowel sounds Skin: General skin exam: normal color and no rashes or lesions noted Neuro: General: oriented to person, oriented to place and oriented to time Extrem: General: normal to inspection, no joint enlargement, no clubbing, cyanosis or edema, no pedal edema and no calf tenderness Psych: Appearance: grossly normal Mental Status: mental status grossly normal Speech and movement: Normal speech and movement present GASKET FORMER - PN: Obj Data Vital Signs Vital Signs: Vital Signs - 24 hr 07/25/23 14:00 07/25/23 19:35 07/25/23 20:00 Temperature 97.6 F 98.3 F Pulse Rate 68 66 Respiratory Rate 18 Blood Pressure 109/54 L 123/71 Pulse Oximetry 99 98 Oxygen Delivery Room Air 07/26/23 06:00 Temperature 97.8 F Pulse Rate 71 Respiratory Rate 18 Blood Pressure 137/82 Pulse Oximetry 100 Oxygen Delivery Intake/Output Intake/Output: Intake & Output 07/23/23 07/24/23 07/25/23 07/26/23 23:59 23:59 23:59 23:59 Intake Total 3890 4050 2017 Balance 3890 4050 2018 Meds/Results Medications: Active Medications Generic Name Dose Route Start Last Admin Trade Name Freq PRN Reason Stop Dose Admin Acetaminophen 650 mg 07/23/23 19:30 Acetaminophen 325 Mg Tablet PO Q4H PRN Mild Pain (1-3) or Fever Cyclobenzaprine HCl 10 mg 07/25/23 12:24 07/25/23 23:09 Cyclobenzaprine Hcl 10 Mg Tablet PO 10 mg Q8H PRN Administration Muscle Spasm Docusate Sodium 100 mg 07/26/23 09:00 07/26/23 09:45 Docusate Sodium 100 Mg Capsule PO 100 mg DAILY GA Administration Sodium Chloride 1,000 mls @ 125 mls/hr 07/23/23 19:45 07/26/23 09:53 Normal Saline Iv IV CONT 125 mls/hr .Q8H GA Administration Ciprofloxacin/Dextrose 200 mls @ 200 mls/hr 07/24/23 09:00 07/26/23 10:45 Cipro 400 Mg/D5w 200 Ml IVPB Infused Q12H GA Infusion Metronidazole 500 mg in 100 mls @ 100 mls/hr 07/24/23 10:00 07/26/23 11:41 Flagyl 500 Mg/Iso Soln 100 Ml IVPB Infused Q8H GA Infusion Ibuprofen 400 mg 07/26/23 09:01 Ibuprofen
--- NOTE | 2023-07-26 13:21 | P.DS_ITS ---
DS: Admitting Diagnosis Discharge Date July 26, 2023 Admitting Diagnosis dyschezia, abdominal pain DS: Discharge Diagnosis Discharge Diagnosis (1) Dyschezia: Code(s): K59.00 - Constipation, unspecified Status: Acute DS: Summary Hospital Course Hospital Course: 37-year-old female who was admitted for postoperative dyschezia, hematuria. Was treated with IV antibiotics for UTI. GI consult was obtained for dyschezia. Patient was observed and GI evaluated patient. Patient was noted to have blood in her stool gross and microscopic. Patient was treated with muscle exercise and 2nd day and she had some reduction pain over painful bowel movements. Noted improvement with muscle relaxers. patient has been stable throughout stay. She has been afebrile. had a episode of emesis hospital day 2. Resolution with tolerating solid foods. Discharge home with muscle relaxers and stool softeners. Days. Time Spent with Patient Time attestation: Total time spent providing and/or coordinating discharge services: DS: Data Data Completed and Pending Labs on day of discharge: Labs from last 24 hours 07/26/23 07/25/23 08:59 17:29 Lipase 99 Procalcitonin 0.0 Discharge Plan Discharge Consulting providers: Jeffrey Villalta Discharging Clinician: Adore Schwab Patient Disposition: Home, Self-Care Activity: pelvic rest Diet: regular Patient Instructions: Antibiotic Form Stand Alone Forms: General Discharge Information Follow-up/Referrals: Adore Schwab MD [Physician] - Discharge Medications: New docusate calcium [Stool Softener (docusate vj)] 240 mg capsule 240 mg PO BID Qty: 60 4RF cyclobenzaprine 10 mg tablet 10 mg PO TID Qty: 30 6RF Continued cetirizine [Zyrtec] 10 mg Tablet 10 mg PO DAILY dextromethorphan-guaifenesin [Mucinex DM] 60-1,200 mg Tablet Extended Release 12 Hr 1 tablet PO Q12H PRN (Reason: Sinus Symptoms) oxycodone-acetaminophen 5-325 mg tablet 1 tablet PO Q4H PRN (Reason: pain) Qty: 25 0RF Date of admission: 07/26/23 11:27 Primary Care Provider: PHYSICIAN,AZURE DEVELOPER Admitting Provider: Adore Schwab Attending physician on admission: Adore Schwab Condition: Stable
[2023-07-26 14:00] VITALS: BP 120/65; PULSE 74; RESP 18; TEMP 37.1; O2SAT 100
[2023-07-26] MEDS: CYCLOBENZAPRINE HCL 10 MG TABLET PO (16:16)
== END 2023-07-26 16:30 | disposition home or self-care (01) | DRG 394 ==
PROVIDERS: Internal Medicine Gastroenterology; Admitting Provider Obstetrics & Gynecology; Visit Provider Obstetrics & Gynecology
DX: K91.89 Other postprocedural complications and disorders of digestive system (principal); K92.1 Melena; N39.0 Urinary tract infection, site not specified; N99.820 Postprocedural hemorrhage of a genitourinary system organ or structure following a genitourinary system procedure; K59.09 Other constipation; R31.9 Hematuria, unspecified; G89.18 Other acute postprocedural pain; R10.9 Unspecified abdominal pain; R11.2 Nausea with vomiting, unspecified; F17.210 Nicotine dependence, cigarettes, uncomplicated; N80.9 Endometriosis, unspecified; Z90.710 Acquired absence of both cervix and uterus; Z90.721 Acquired absence of ovaries, unilateral
CPT/HCPCS: 36415; 74177; 80053; 82274; 83690; 84145; 85025; 89055; 96361; 96365; 96366; 96367; 96374; A9270; G0378; G0379; J0744; J1836; J2405; J7030; Q9967

== ENCOUNTER 2025-01-29 22:26 | Emergency (ER) | payer BC, SELFPAY ==
--- NOTE | ~2025-01-29 | XR_ITS ---
Left ankle Technique: AP, oblique, and lateral views were obtained. Clinical History: Injury Findings: No acute fracture or dislocation is seen. Osseous alignment is anatomic. Ankle mortise and other visualized joint spaces are preserved. Soft tissues are otherwise unremarkable. Impression: Unremarkable left ankle. Reviewed, dictated and finalized at location . Impression: Unremarkable left ankle.
--- NOTE | ~2025-01-29 | XR_ITS ---
Left foot Technique: AP, oblique, and lateral views were obtained. Clinical History: Injury Findings: No acute fracture or dislocation is seen. Osseous alignment is anatomic. Joint spaces are p reserved without erosive or degenerative change. Soft tissues are unremarkable. Impression: Unremarkable left foot radiographs. Reviewed, dictated and finalized at location . Impression: Unremarkable left foot radiographs.
--- OUTSIDE RECORDS SUMMARY | 2025-01-29 22:28 | XMS_ITS | Data Portability ---
Author Organization [facility] Address [address] [place] [address] Assessment No assessment recorded. Plan of Treatment Reminders Order Date Submit Date Provider Last Modified By Organization Details Last Modified Time Details Appointments None record ed. Lab None record ed. Referral None record ed. Procedures None record ed. Surgeries None record ed. Imaging None record ed. Medication Orders None record ed. Patient TargetsNo targets recorded. Patient InstructionsNo instructions recorded. Reason for Referral None Reported. Results Created Date Observation Date Name Description Value Unit Range Abnormal Flag Note LastModifiedBy Organization Detail LastModifiedTime 07/23/20 23 07/23/2023 CULTU RE: URINE result report SEE RESULT S BELOW Test: Cultu re: Urine Speci men Sourc e: Urine Voide d Speci men Type: Urine Speci men Date: 2022 5:34 PM Resul t Date: 2022 6:07 AM Resul t Statu s: Final resul t Abnor mal: No Resul ting Lab: [facility] [address] [facility] [address] Tel: CULTU RE ----- ----- ----- --- No growt h in 1 day (dete ction level of 10,00 0 colon ies / ml.) Not Available [facility] (Lab) [address] [facility], [place], [address], 07/25/2023 07:11:29 07/24/20 23 07/24/2023 urina lysis , dipst ick Leukocytes trace Not Available [facility] [address], [place], [address], 07/24/2023 09:42:38 07/24/20 23 07/24/2023 urina lysis , dipst ick Nitrite negati ve Not Available [facility] [address], [place], [address], 07/24/2023 09:42:38 07/24/20 23 07/24/2023 urina lysis , dipst ick Protein trace Not Available [facility] [address], [place], [address], 07/24/2023 09:42:38 07/24/20 23 07/24/2023 urina lysis , dipst ick pH 6 Not Available [facility] [address], [place], [address], 07/24/2023 09:42:38 07/24/20 23 07/24/2023 urina lysis , dipst ick Blood ++ Not Available [facility] [address], [place], [address], 07/24/2023 09:42:38 07/24/20 23 07/24/2023 urina lysis , dipst ick Specific [place] 1.005 Not Available [facility] [address], [place], [address], 07/24/2023 09:42:38 07/24/20 23 07/24/2023 urina lysis , dipst ick Glucose normal Not Available [facility] [address], [place], [address], 07/24/2023 09:42:38 07/24/20 23 07/24/2023 CT, abdom en + pelvi s, w/o contr ast No observ ation record ed. [address], [place], [address], 07/24/2023 20:30:48 Result Notes None recorded. Procedures Surgical History Date Name Laterality Status Provider Name and Address Organization Details Recorded Time 07/09/20 23 ROBOTIC ASSISTED HYSTERECTOMY WITH SALPINGECTOMY (SURG) completed Charlene Stuart [facility] 09/02/2023 18:30:42 08/18/19 12 Tubal Ligation completed [facility] 04/28/2023 11:05:33 05/18/20 10 procedure on back completed [facility] 04/28/2023 11:05:51 04/18/20 10 procedure on ovary completed [facility] 04/28/2023 11:05:14 Imaging Results None recorded. Procedure Notes None recorded. Medical Equipment None Reported. Allergies Allergen ID Allergen Name Allergen Category Reaction Reaction Severity Criticality Documentation Date Start Date Code Code System Note Provider Name and Address Organization Details Recorded Time 02465 Keflex medicatio n hives Not available Not available 04/28/2023 61120 7 [facility] 3 10:02:28 03806 Bactrim medicatio n hives Not available Not available 04/28/2023 52491 9 [facility] 3 10:02:36 Medications Name Sig Start Date Stop Date Status Note LastModified by Organization Details LastModified Time cyclobenzaprine 10 mg tablet TAKE 1 TABLET BY MOUTH THREE TIMES DAILY active Not Available Not Available No t Available oxycodone-acetam inophen 5 mg-325 mg tablet TAKE 1 TABLET BY MOUTH EVERY 6 HOURS active Not Available Not Available No t Available Zyrtec active Not Available Not Availa ble Not Available Vitals Date Recorded Body height Body mass index (BMI) Body weight Systolic blood pressure Diastolic blood pressure Provider Name and Address Organization Details Last Updated DateTime 07/02/2023 170.18 cm 33.5 kg/m2 97816.77 g 154 mm[Hg] 91 mm[Hg] [facility] 3 14:12:22 Date Recorded Body height Body mass index (BMI) Body weight Systolic blood pressure Diastolic blood pressure Provider Name and Address Organization Details Last Updated DateTime 07/16/2023 170.18 cm 33.7 kg/m2 14111.36 g 160 mm[Hg] 94 mm[Hg] [facility] 3 14:16:56 Date Recorded Body height Body mass index (BMI) Body weight Systolic blood pressure Diastolic blood pressure Systolic blood pressure Diastolic blood pressure Provider Name and Address Organization Details Last Updated DateTime 3 170.18 cm 33.7 kg/m2 62599.3 6 g 158 mm[Hg] 95 mm[Hg] 138 mm[Hg] 85 mm[Hg] [facility] 3 17:42:34 Date Recorded Body height Body mass index (BMI) Body weight Systolic blood pressure Diastolic blood pressure Provider Name and Address Organization Details Last Updated DateTime 08/01/2023 170.18 cm 33.7 kg/m2 31406.36 g 131 mm[Hg] 86 mm[Hg] [facility] 3 16:33:00 Social History Question Answer Notes LastModified by Organizat ion Details LastModified Time Tobacco Smoking Status Current Every Day Smoker [facility] 04/28/2023 11:04:42 At What Age Did You Start Smoking Tobacco? 14 Information not available 04/28/2023 How Much Tobacco Do You Smoke? 0.25 PPD Information not available 04/28/2023 Sex: Unknown Functional Status None recorded. Mental Status None recorded. Family History Relationship Description Onset Age of this Age Resolved Age Notes LastModified by Organization Details LastModified Time Paternal Grandfather Diabetes mellitus [email or web address] Not available 2022 11:03:19 Maternal Grandmother Hypertensive disorder [email or web address] Not available 2022 11:03:40 Maternal Aunt Hypertensive disorder [email or web address] Not available 2022 11:03:57 Maternal Aunt Malignant neoplasm of ovary [email or web address] Not available 2022 11:04:13 Sister Disorder of thyroid gland [email or web address] Not available 2022 11:04:24 Medical History Condition Response Other Y Anemia Y Gynecological History Statement/Question Response Age of first menstrual cycle 12 Abnormal Pap Y Date of Last Pap Smear Current Control Method Hysterectom y Date of LMP 04/13/2023 Obstetrics History GPAL:G 2 P 1 0 1 1 Type Value Full Term 1 Induced 1 Living 1 Total 2 Past Encounters Encounter ID Performer Location Encounter Start Date Encounter Closed Date Diagnosis/Indication Diagnosis SNOMED-CT Code Diagnosis ICD10 Code Diagnosis Note [id number] Brian Schwab MD [facility] [address],[facility] [place] [address] 04/28/2023 09:33:35 04/28/2023 11:02:55 Menorrhagia 603124833 N92.0 Dysmenorrhea 185148942 N 94.6 37-year-ol d female with severe menorrhagi a and debilitati ng dysmenorrh ea. These issues affect her quality of life and activities of daily living to profound extent. We discussed evaluation of some treatment options today. We spent over 40 minutes face-to-fa ce. More than 50% was counseling . Patient will have a pelvic ultrasound and return to discuss treatment. She is favoring hysterecto my. She has failed medical treatments that include IUD and oral contracept cristel pills. [id number] Brian Schwab MD [facility] [address] [address] 05/06/2023 10:13:58 05/06/2023 11:18:26 Menorrhagia 157842763 N92.0 N94.6 [id number] Brian Schwab MD [facility] [address] [address] 05/07/2023 15:13:11 05/07/2023 16:26:33 Menorrhagia 910875133 N92.0 N94.6 This patient is a 37-year-ol d female presents for heavy vaginal bleeding. She has longstandi ng very heavy bleeding. Her menses are regular. However, they require double protection . Patient has accidents, getting blood on her bedding and clothing. Is affected work. She changes a pad or tampon every hour. She leaks blood around the pad and tampon. This bleeding has a profound impact on her quality of life and her activities of daily living. Patient has longstandi ng heavy bleeding and has suffered considerab ly. She has had to leave work many times, she gets has gotten blood in her car. She also has severely painful periods. The pain is debilitati ng. She also has pain with intercours e at times. We talked about treatment options. The patient would like definitive surgical treatment. She has been suffering for many years. We agreed to move forward with robotic assisted hysterecto my with bilateral salpingect ashanti. We made a decision to perform surgery. We spent 40 minutes face-to-fa ce. More than 50% was counseling . Dysmenorrhea 952151857 N 94.6 Pain in pelvis 49962512 R10.2 Dyspareunia 12259872 N94 .10 [id number] Brian Schwab MD [facility] [address] [address] 07/02/2023 13:40:57 07/03/2023 08:51:01 Menorrhagia 050868002 N92.0 N94.6 this patient is a 37-year-ol d female with severe menorrhagi a. We have agreed to perform robotic assisted hysterecto my with bilateral salpingect ashanti. She understand s the risks, benefits, and alternativ es. She is completed the informed consent process and is ready to proceed. [id number] Brian Schwab MD [facility] [address] [address] 07/16/2023 13:45:12 07/16/2023 17:14:27 Postoperative care [id number] Z48.89 this patient is a 37-year-ol dfemale Patient presents for postop follow-up. She is 1 week postop from a total laparoscop ic hysterecto my bilateral salpingect ashanti. She has no complaints . Her incisions are clean dry and intact. She is recovering normally. She will follow-up as needed. patient also had left oophorecto my and extensive adhesiolys is on left side for endometrio sis with severe scarring of left adnexa. [id number] Brian Schwab MD [facility] [address] [address] 07/23/2023 17:18:00 07/24/2023 08:44:39 Postoperative abdominal pain 9900864267 9438082 R10.9 37-year-ol d female who is 2 weeks postop from a laparoscop ic hysterecto my. She has persistent lower abdominal pain. She is severe cramping during a bowel movement. Severely painful. Then the pain has relief. It is very intense pain. She is soft bowel movements. She is regular bowel movements. She denies any nausea, vomiting, fever, chills. She states the pain is unbearable . We examined the patient. She is some recent vaginal bleeding. The vaginal cuff appears intact. There is no new blood present in the vagina. , no blood was visualized at all. She is no abdominal tenderness . We discussed evaluation treatment options. We agreed to admit to the hospital for pain management , evaluation of GI tract, imaging, labs. [id number] Brian Schwab MD [facility] [address] [address] 07/24/2023 12:23:17 07/24/2023 12:30:47 [id number] Brian Schwab MD [facility] [address] [address] 08/01/2023 16:00:25 08/03/2023 09:54:12 Postoperative care [id number] Z48.89 38-year-ol d female who presents for follow-up after readmissio n to the hospital. She had some severe pain with bowel movements after the surgery. She had some severe endometrio sis that has her rectum adherent to the vagina. The deep posterior cul-de-sac is obliterate d. Her pain with bowel movements has improved. She would a normal CT scan at the hospital. She had a GI consult. No colonoscop y was done. Has some night sweats. Has some fatigue. Likely just results of the physical and surgical stresses. She is still taking pain medication and muscle relaxers. We will continue muscles relaxers and stool softeners. She will follow-up as needed. Health Concerns Section Related Observation LastModified by Organization Detai ls LastModified Time None Recorded Concern Status LastModified by Organization Details LastModified Time None Recorded Advance Directives Directive None Recorded Payers Insurance Date Sequence Insurance Name Policy Number Policy Moore Covered Member ID Moore Member ID Guarantor Name 08/04/2023 1 [place] 113 Shirlene Price [id number] Shirlene Price 08/04/2023 2 [place] [id number] Girish Price [id number] Shirlene Price 04/28/2023 1 [place] 113 Shirlene Gunderson [id number] Shirlene Price Notes Date Note Type Note Provider Name and Address Organization Details Recorded Time 07/02/2023 text/html This patient is a 33-year-old female with severe menorrhagia. We have agreed to perform robotic assisted hysterectomy with bilateral salpingectomy. The patient understands the procedure. The procedure was described to the patient in great detail. the patient also understands the risks. The risks were also explained in detail. She understands that injuries May occur during surgery. She understands these injuries can result in hospitalization, more surgery, and severe illness. She understands there is risk of hemorrhage and infection. Brian Schwab MD [address], [place], [address], [facility] 07/02/2023 21:50:46 07/16/2023 text/html this patient is a 15-bnyy-tzarbypxg Patient presents for postop follow-up. She is 1 week postop from a total laparoscopic hysterectomy bilateral salpingectomy. She has no complaints. Her incisions are clean dry and intact. She is recovering normally. She will follow-up as needed. patient also had left oophorectomy and extensive adhesiolysis on left side for endometriosis with severe scarring of left adnexa. Brian Schwab MD [address], [place], [address], [facility] 07/16/2023 16:59:12 07/23/2023 text/html 37-year-old aristeo dave who is 2 weeks postop from a laparoscopic hysterectomy. She has persistent lower abdominal pain. She is severe cramping during a bowel movement. Severely painful. Then the pain has relief. It is very intense pain. She is soft bowel movements. She is regular bowel movements. She denies any nausea, vomiting, fever, chills. She states the pain is unbearable. We examined the patient. She is some recent vaginal bleeding. The vaginal cuff appears intact. There is no new blood present in the vagina. , no blood was visualized at all. She is no abdominal tenderness. We discussed evaluation treatment options. We agreed to admit to the hospital for pain management, evaluation of GI tract, imaging, labs. Brian Schwab MD [address], [place], [address], [facility] 07/23/2023 21:30:15 08/01/2023 text/html 38-year-old aristeo dave who presents for follow-up after readmission to the hospital. She had some severe pain with bowel movements after the surgery. She had some severe endometriosis that has her rectum adherent to the vagina. The deep posterior cul-de-sac is obliterated. Her pain with bowel movements has improved. She would a normal CT scan at the hospital. She had a GI consult. No colonoscopy was done. Has some night sweats. Has some fatigue. Likely just results of the physical and surgical stresses. She is still taking pain medication and muscle relaxers. We will continue muscles relaxers and stool softeners. She will follow-up as needed. Brian Schwab MD [address], [place], [address], [facility] 08/01/2023 17:10:43 OBGyn Episode Ob Episode Information Episode Created Date Number of Fetuses Patient Bloodtype Patient rh Status Prepregnancy Weight lbs Domestic Partner Domestic Partner Phone Father Name Labor Economist Status 04/28/20 23 1 CLOSED Fetus Data First Name Last Name Admitted to NICU Weight (g) Sex Living Outcome Pediatric Complications Fetus ID Race Codes Race Delivery Type 2863.07 2704 F Prematur [place] [id number] Primary Akash Calculation Initial Akash Date Initial Exam Date Initial Exam Provider Initial Ultrasound Date Last Menstrual Period Date Ultra Sound Weeks Gestation 0 Eighteen To Twenty Week Akash Update Ultra Sound Date Fundal Height At Umbil Quickening Date Ultra Sound Latest Weeks Gestation Final Akash Confirmed By Final Akash Confirmed Date Final Akash Date Ultra Sound Latest Days Gestation 0 0 Menstrual History Last Menstrual Date Menses Monthly On Bcp Conception Prior Menses Frequency Hcg Plus Date Menarche Onset Age Delivery Information Delivery Date Delivery Type Labor Anesthesia Weeks Gestation Incision Type Labor Labor Length Hrs Delivered By Post Complications Tubal Sterilization Discharge Date Comments 5 36 Hayleig h Discharge Information Feeding Method Contraceptive Method Maternal HG B and HCT Levels Ob Episode Information Episode Created Date Number of Fetuses Patient Bloodtype Patient rh Status Prepregnancy Weight lbs Domestic Partner Domestic Partner Phone Father Name Labor Economist Status 04/28/20 23 1 CLOSED Fetus Data First Name Last Name Admitted to NICU Weight (g) Sex Living Outcome Pediatric Complications Fetus ID Race Codes Race Delivery Type , Induced [id number] Akash Calculation Initial Akash Date Initial Exam Date Initial Exam Provider Initial Ultrasound Date Last Menstrual Period Date Ultra Sound Weeks Gestation 0 Eighteen To Twenty Week Akash Update Ultra Sound Date Fundal Height At Umbil Quickening Date Ultra Sound Latest Weeks Gestation Final Akash Confirmed By Final Akash Confirmed Date Final Akash Date Ultra Sound Latest Days Gestation 0 0 Menstrual History Last Menstrual Date Menses Monthly On Bcp Conception Prior Menses Frequency Hcg Plus Date Menarche Onset Age Delivery Information Delivery Date Delivery Type Labor Anesthesia Weeks Gestation Incision Type Labor Labor Length Hrs Delivered By Post Complications Tubal Sterilization Discharge Date Comments 2 Discharge Information Feeding Method Contraceptive Method Maternal HG B and HCT Levels
--- OUTSIDE RECORDS SUMMARY | 2025-01-29 22:29 | XMS_ITS | Clinical Summary ---
Author Organization [facility] Address [address] [place] [address] Care Team Providers Care Material Handling Crew Supervisor Name Role Phone Unavailable Primary Care Provider Unavailabl e Source Comments [facility],non-owned Affiliates and Associated Physician Practices is amultiple site organization consisting of ambulatory clinics and hospital sitesin [place], [place], [place] and [place]. This disclosure is being madepursuant to the Care Everywhere program and may not contain all information available regarding this patient. 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 Gender Identity Not on file Sexual Orientation Not on file Last Filed Vital Signs Vital Sign Reading Time Taken Comments Blood Pressure 141/90 05/23/2015 9:40 PM CDT Pulse 90 05/23/2015 9:40 PM CDT Temperature 37 C (98.6 F) 05/23/2015 9:40 PM CDT Respiratory Rate 20 05/23/2015 9:40 PM CDT Oxygen Saturation 100% 05/23/2015 9:40 PM CDT Inhaled Oxygen Concentration - - Weight 93 kg (205 lb) 05/23/2015 9:40 PM CDT Height 170.2 cm (5' 7) 05/23/2015 9:40 PM CDT Body Mass Index 32.11 05/23/2015 9:40 PM CDT Plan of Treatment Health Maintenance Due Date Last Done Comments LIPID TESTING 1983 MAMMOGRAM 1983 HIV SCREENING 1998 HEPATITIS C SCREENING 07/25/2001 DTAP/TDAP/TD VACCINES (1 - Tdap) 2002 HEPATITIS B VACCINE (1 of 3 - 19+ 3-dose series) 2002 PNEUMOCOCCAL VACCINE (1 of 2 - PCV) 2002 PAP SMEAR 2004 COVID-19 VACCINE (1 - 2023-2 5 season) 2024 DEPRESSION SCREENING 08/18/2024 INFLUENZA VACCINE (Season Ended) 2025 ZOSTER VACCINE (1 of 2) 2033 HIB VACCINE Aged Out No longer eligi ble based on patient's age to complete this topic HPV VACCINE Aged Out No longer eligi ble based on patient's age to complete this topic MENINGOCOCCAL (Group B) VACC INE SHARED DECISION-MAKING Aged Out No longer eligibl e based on patient's age to complete this topic MENINGOCOCCAL GROUPS A/C/Y/W VACCINE Aged Out No longer eligible b ased on patient's age to complete this topic Insurance [facility]
[2025-01-29 22:34] VITALS: BP 137/91; PULSE 95; RESP 18; TEMP 36.6; O2SAT 100
[2025-01-29] MEDS: oxyCODONE/ACETAMINOPHEN (*CRX) 5-325 MG TABLET 1 TABLET PO (23:05)
--- NOTE | 2025-01-29 23:41 | ED_ITS ---
HPI - Extremity Injury (Lower) General Chief Complaint: Extremity Injury, Lower Stated Complaint: fall, left foot pain Time Seen by Provider: 01/29/25 22:36 History of Present Illness HPI Narrative: Patient presents here after she tripped and fell down stairs, she rolled her left ankle. Pain with walking on it. When it 1st happened it hurt so bad she almost threw up. Related Data Home Medications ?Medication ?Instructions ?Recorded ?Confirmed ?Last Taken ?Type cetirizine 10 mg tablet (Zyrtec) 10 mg PO DAILY 07/02/23 07/23/23 07/23/23 08:00 History dextromethorphan-guaifenesin ER 60 1 tablet PO Q12H PRN Sinus Symptoms 07/02/23 07/23/23 07/23/23 08:00 History mg-1,200 mg tab,extend release,12hr (Mucinex DM) Allergies Allergy/AdvReac Type Severity Reaction Status Date / Time Sulfa (Sulfonamide Allergy Mild Hives Verified 01/29/25 22:38 Antibiotics) sulfamethoxazole Allergy Mild Hives Verified 01/29/25 22:38 cephalexin Allergy Unknown Hives Verified 01/29/25 22:38 sulfamethizole Allergy Unknown Hives Verified 01/29/25 22:38 trimethoprim Allergy Unknown Hives Verified 01/29/25 22:38 Review of Systems Review of Systems: All systems reviewed & are unremarkable except as noted in HPI and below PMFSH Family History Family History Father Family history of mental disorder Patient's father is in good health Grandparent Hypertension Mother Patient's mother is in good health Social History Social History Years smoked: 20 Smoking status: Current every day smoker Tobacco type: cigarettes Alcohol intake: never Alcohol use details: VERY RARE Substance use: never Substance use type: does not use Do You Feel Safe in your Home?: Yes Lack of Transportation: No Lack of Food: Never True Current Housing: I Have Housing Concerned About Future Housing: No Difficulty Paying Gas/Electric Bills: No Difficulty Paying for Meds: No Currently Unemployed: No Education: High School Diploma/GED Difficulty w/ Childcare or Family Care: No Living arrangements: with family Gender identity (if verbalized by the patient): Female Spiritual care concerns: No Exam Narrative: EXAMINATION OF ORGAN SYSTEMS/BODY AREAS: Constitutional: Vital signs per nursing GENERAL:[No acute distress, non-toxic appearing.] HEAD: Normal with no signs of head trauma. EYES: EOMI, conjunctiva normal ENT: Hearing grossly intact LUNGS: Nonlabored breathing. HEART: [Regular rate and rhythm], strong DP pulse ABD: [Soft], [nontender to palpation] EXT: Normal range of motion, tenderness and swelling lateral malleolus left ankle SKIN: [No rashes or lesions.] NEURO: [Alert and oriented x 3. No gross focal sensory or strength deficits.] PSYCH: Normal affect Course Vital Signs Vital signs: Vital Signs Temperature 97.9 F 01/29/25 22:34 Pulse Rate 95 01/29/25 22:34 Respiratory Rate 18 01/29/25 22:34 Blood Pressure 137/91 H 01/29/25 22:34 Pulse Oximetry 100 01/29/25 22:34 Oxygen Delivery Room Air 01/29/25 22:34 Temperature 97.9 F 01/29/25 22:34 Pulse Rate 95 01/29/25 22:34 Respiratory Rate 18 01/29/25 22:34 Blood Pressure 137/91 H 01/29/25 22:34 Pulse Oximetry 100 01/29/25 22:34 Oxygen Delivery Room Air 01/29/25 22:34 MDM - Extremity Injury (Lower) MDM Narrative Medical decision making narrative: MEDICAL DECISION MAKING AND COURSE IN THE ED WITH INTERPRETATION/REVIEW OF DIAGNOSTIC STUDIES: Electronic medical record was reviewed. This patient was seen by myself. Patient presented to the ED with complaint of [left foot and ankle pain after inversion injury]. Vitals [were within acceptable limits]. Physical exam revealed tenderness at left lateral malleolus. Based on the patient's history and physical exam, I am concerned for fracture vs sprain. Patient was given 1 Percocet for pain. Ankle and foot xrays were obtained showing no obvious acute fracture on my independent interpretation. SUJATHA wrap applied to injured extremity. Patient given strict return precautions if pain is worse or there is poor blood flow to the extremity, and advised to rest the limb and to followup with Podiatry as needed Discharge Plan Discharge Clinical Impression: Ankle sprain and strain Patient Disposition: Home Condition: Stable Instructions: Ankle Sprain (ED) Additional Instructions: Please ice your ankle, take ibuprofen/tylenol for pain as needed, and try not to put too much weight on it the first few days. You can always return to the ER for any further issues. Patient Language: Sami Prescriptions: New acetaminophen [Tylenol Extra Strength] 500 mg tablet 1,000 mg PO Q6H PRN (Reason: pain) Qty: 50 0RF ibuprofen 600 mg tablet 600 mg PO TID PRN (Reason: fever or pain) Qty: 30 0RF No Action cetirizine [Zyrtec] 10 mg Tablet 10 mg PO DAILY dextromethorphan-guaifenesin [Mucinex DM] 60-1,200 mg Tablet Extended Release 12 Hr 1 tablet PO Q12H PRN (Reason: Sinus Symptoms) oxycodone-acetaminophen 5-325 mg tablet 1 tablet PO Q4H PRN (Reason: pain) Qty: 25 0RF docusate calcium [Stool Softener (docusate vj)] 240 mg capsule 240 mg PO BID Qty: 60 4RF cyclobenzaprine 10 mg tablet 10 mg PO TID Qty: 30 6RF Follow-up/Referrals: John Woods Jr., JESS [Physician] - 2 Days PHYSICIAN,STILL OPERATOR HELPER [Primary Care Provider] -
== END 2025-01-29 23:34 | disposition home or self-care (01) ==
PROVIDERS: Emergency Provider Emergency Medicine
DX: S93.402A Sprain of unspecified ligament of left ankle, initial encounter (principal); S96.912A Strain of unspecified muscle and tendon at ankle and foot level, left foot, initial encounter; F17.210 Nicotine dependence, cigarettes, uncomplicated; W10.9XXA Fall (on) (from) unspecified stairs and steps, initial encounter
CPT/HCPCS: 73610; 73630; 99283; A9270

== ENCOUNTER 2025-02-25 07:44 | Outpatient (CLI) | payer BC, SELFPAY ==
--- NOTE | ~2025-02-25 | MM_ITS ---
EXAMINATION: MM screening arelis BI w prabhjot HISTORY: Screening mammogram TECHNIQUE: Craniocaudal and mediolateral oblique 3-D tomosynthesis images were obtained and synthetic 2-D images were generated. CAD analysis was submitted and interpreted. COMPARISON: No prior mammogram is available for comparison at this institution. BREAST PARENCHYMAL COMPOSITION:Not Dense. There are scattered areas of fibroglandular density. FINDINGS: No suspicious mass, calcification, or architectural distortion are identified in either radha ast to suggest malignancy. There has been no suspicious interval change. IMPRESSION: No mammographic evidence of malignancy. Recommend routine screening mammography in one year. BI-RADS Category 1: Negative Reviewed, dictated and finalized at location .
--- OUTSIDE RECORDS SUMMARY | 2025-02-25 07:51 | XMS_ITS | Data Portability ---
Author Organization [facility] Address [address] [place] [address] [place] [address] Assessment Encounter Date Assessment Date Assessment LastModified by Organization Details LastModified Time 02/15/2025 02/15/2025 Annual gynecological exam performed. Patient will come back in a year unless there are new symptoms. [email or web address] Not available 02/15/2025 10:01:32 Plan of Treatment Reminders Order Date Submit Date Provider Last Modified By Organization Details Last Modified Time Details Appointments None recorded. Lab pap, IG + HR HPV - HPV regardless but if HPV is positive need subtyping 16,18/45 2024 025 [facility] (Lab), [address], [place], [address], 5 17:56:17 Referral None recorded. Procedures diagnostic colonoscopy (PROC) 2024 025 [email or web address] [facility], [address], [address], [place], [address], 5 11:00:49 Surgeries None recorded. Imaging MAMMO, screening, digital, bilateral 2024 025 [facility], [address], [address], [place], [address], 5 04:11:55 Medication Orders None recorded. Patient TargetsNo targets recorded. Patient InstructionsNo instructions [...] t Abnor mal: No Resul ting Lab: [facility] [address] [facility] [address] Tel: [phone] CULTU RE ----- ----- ----- --- No growt h in 1 day (dete ction level of 10,00 0 colon ies / ml.) Not Available [facility] (Lab) [address], [place], [address], 07/25/2023 07:11:29 07/24/20 23 07/24/2023 urina lysis , dipst ick Leukocytes trace Not Available [facility] [address], [place], [address], 07/24/2023 09:42:38 07/24/20 23 07/24/2023 urina lysis , dipst ick Nitrite negati ve Not Available [facility] [address], [place], [address], 07/24/2023 09:42:38 07/24/20 23 07/24/2023 urina lysis , dipst ick Protein trace Not Available [facility] [address], [place], [address], 07/24/2023 09:42:38 07/24/20 23 07/24/2023 urina lysis , dipst ick pH 6 Not Available [facility] [address], [place], [address], 07/24/2023 09:42:38 12/07/07/24/2023 urina lysis , dipst ick Blood ++ Not Available [facility] [address], [place], [address], 07/24/2023 09:42:38 07/24/20 23 07/24/2023 urina lysis , dipst ick Specific [place] 1.005 Not Available [facility] [address], [place], [address], 07/24/2023 09:42:38 07/24/20 23 07/24/2023 urina lysis , dipst ick Glucose normal Not Available [facility] [address], [place], [address], 07/24/2023 09:42:38 02/16/20 25 02/15/2025 IMAGE GUIDE D PAP AND HPV REGAR DLESS image guided Pap, HPV regardless of Pap result SEE RESULT S BELOW CASE REPOR T: Cytol ogy Gynec ologi vj Repor t Case: [id number] Autho kody gibson Provi amanda: Dermo lucille, Daisy , ANP, PACKAGE SEALER MACHINE Colle cted: 02/15 1051 Order ing Locat ion: [place] [facility] Recei dorian: 02/16 0225 First Scree n: Silverio Wolf, CT Speci men: Elvisbri brewerg Pap - Image d, Vagin a STATE MENT OF ADEQU ACY: Satis facto ry for evalu ation ----- ----- ----- ----- ----- ----- ----- ----- ----- ----- ----- ----- ----- ----- ----- ----- ----- ---- FINAL DIAGN OSIS: Negat cristel for Intra epith elial Hortensia n or Kavin smith (NIL) . Elect nasir vickers d by Silverio Wolf, CT on 025 at 1413 CDT ----- ----- ----- ----- ----- ----- ----- ----- ----- ----- ----- ----- ----- ----- ----- ----- ----- ---- HPV RESUL TS: HPV mRNA E6/E7 : No HPV mRNA Detec homa NOTE: This high risk HPV mRNA assay detec ts fourt een high- risk HPV types (16, 18, 31, 33, 35, 39, 45, 51, 52, 56, 58, 59, 66, 68) witho ut diffe renti ation . COMME NT: This speci men was revie wed by a Cytot echno logis t and/o r Patho logis t (as indic ated in this repor t) after evalu ation using the Thinp rep Imagi ng Syste m. CLINI VJ INFOR MATIO N: Menst rual Statu s: LMP (if appli cable ): Clini vj Histo ry/Pr eviou s Pap: Type of Neopl marce (if appli cable ): Signi fican t Clini vj Findi ngs: Other Histo ry: Hormo pratik (if appli cable ): PAP EDUCA ANGI L NOTE: The Pap Test is a scree zain test with an inher ent false negat cristel rate. Liqui d-bas ed sampl ing may decre ase, but will not elimi salinas, false negat cristel resul ts. A negat cristel resul t does not precl ude the prese nce and/o r devel opmen t of disea se, since the prese nce of abnor mal cells in the sampl e depen ds on the locat ion of the lesio n and sampl ing techn ique. Anshul nued regul ar scree zain is the best metho d of cance r preve ntion . If repor homa cytol ogic findi ng do not corre late with physi vj and/o r histo rical findi ngs, fur er inves tigat ion is recom faith d, as clini jessica zafar nted. Not Available [facility] (Lab) [address], [place], [address], 02/16/2025 17:56:17 07/24/20 23 07/24/2023 CT, abdom en + pelvi s, w/o contr ast No observ ation record ed. [address], [place], [address], 07/24/2023 20:30:48 Result Notes None recorded. Procedures Surgical History Date Name Laterality Status Provider Name and Address Organization Details Recorded Time 07/09/20 23 ROBOTIC ASSISTED HYSTERECTOMY WITH SALPINGECTOMY (SURG) completed [facility] 09/02/2023 18:30:42 08/18/19 12 Tubal Ligation completed [facility] 04/28/2023 11:05:33 05/18/20 10 procedure on back completed [facility] 04/28/2023 11:05:51 04/18/20 10 procedure on ovary completed [facility] 04/28/2023 11:05:14 Imaging Results None recorded. Procedure Notes None recorded. Medical Equipment None Reported. Allergies Allergen ID Allergen Name Allergen Category Reaction Reaction Severity Criticality Documentation Date Start Date Code Code System Note Provider Name and Address Organization Details Recorded Time 19491 Keflex medicatio n hives Not available Not available 04/28/2023 81516 7 RxNorm Melissa [facility] 3 10:02:28 18260 Bactrim medicatio n hives Not available Not available 04/28/2023 78125 9 RxNorm Melissa [facility] 3 10:02:36 Medications Name Sig Start Date Stop Date Status Note LastModified by Organization Details LastModified Time cyclobenzap rine 10 mg tablet TAKE 1 TABLET BY MOUTH THREE TIMES DAILY 02/15 completed Not Available Not Available Not Available promethazin e-DM 6.25 mg-15 mg/5 mL oral syrup TAKE 5 ML BY MOUTH EVERY 4 TO 6 HOURS FOR 10 DAYS NEEDED FOR COUGH 02/15 completed Not Available Not Available Not Available benzonatate 200 mg capsule TAKE 1 CAPSULE BY MOUTH THREE TIMES DAILY FOR 10 DAYS FOR COUGH 02/15 completed Not Available Not Available Not Available acetaminoph en 500 mg tablet TAKE 2 TABLETS BY MOUTH EVERY 6 HOURS NEEDED FOR PAIN active Not Available Not Available No t Available oxycodone-a cetaminophe n 5 mg-325 mg tablet TAKE 1 TABLET BY MOUTH EVERY 6 HOURS 02/15 completed Not Available Not Available Not Available ibuprofen 600 mg tablet TAKE 1 TABLET BY MOUTH THREE TIMES DAILY NEEDED FOR FEVER OR PAIN active Not Available Not Available No t Available albuterol sulfate HFA 90 mcg/actuati on aerosol inhaler INHALE 2 PUFFS BY MOUTH EVERY 4 HOURS NEEDED FOR DIFFICULT BREATHING active Not Available Not Available No t Available Zyrtec 02/15 completed Not Available Not Available Not Available Vitals Date Recorded Body height Body mass index (BMI) Body weight Systolic And Diastolic Provider Name and Address Organization Details Last Updated DateTime 02/15/2025 170.18 cm 34.1 kg/m2 66888.42 g 134/83 mm[Hg] [facility] 02/15/2025 10:10:27 Date Recorded Body height Body mass index (BMI) Body weight Systolic And Diastolic Provider Name and Address Organization Details Last Updated DateTime 07/16/2023 170.18 cm 33.7 kg/m2 94013.36 g 160/94 mm[Hg] [facility] 07/16/2023 14:16:56 Date Recorded Body height Body mass index (BMI) Body weight Systolic And Diastolic Systolic And Diastolic Provider Name and Address Organization Details Last Updated DateTime 07/23/2023 170.18 cm 33.7 kg/m2 40902.36 g 158/95 mm[Hg] 138/85 mm[Hg] [facility] 17:42:34 Date Recorded Body height Body mass index (BMI) Body weight Systolic And Diastolic Provider Name and Address Organization Details Last Updated DateTime 08/01/2023 170.18 cm 33.7 kg/m2 98305.36 g 131/86 mm[Hg] Melissa Gould [facility] 08/01/2023 16:33:00 Social History Question Answer Notes LastModified by Organizat ion Details LastModified Time Tobacco Smoking Status Current Every Day Smoker Melissa Gould musa, [facility] 04/28/2023 11:04:42 How Many Years Have You Consumed Alcohol? 20 [email or web address] Information not available 02/15/2025 Are You Blind Or Do You Have Difficulty Seeing? No [email or web address] Information n ot available 02/15/2025 What Is Your Level Of Caffeine Consumption? Heavy [email or web address] Information not available 02/15/2025 How Much Tobacco Do You Chew? 1/day [email or web address] Information not available 02/15/2025 In The 14 Days Before Symptom Onset, Have You Had Close Contact With A Laboratory-confirm ed COVID-19 While That Case Was Ill? No [email or web address] Information n ot available 02/15/2025 In The 14 Days Before Symptom Onset, Have You Had Close Contact With A Person Who Is Under Investigation For COVID-19 While That Person Was Ill? No Information not available 02/15/2025 Have You Been To An Area Known To Be High Risk For COVID-19? No [email or web address] Information not available 02/15/2025 Are You Deaf Or Do You Have Serious Difficulty Hearing? No [email or web address] Information not available 02/15/2025 What Is The Highest Grade Or Level Of School You Have Completed Or The Highest Degree You Have Received? [id number] [email or web address] Information not available 02/15/2025 Are There Any Guns Present In Your Home? Yes [email or web address] Information not available 02/15/2025 Do You Use Protection During Sex? No [email or web address] Information not available 02/15/2025 Do You Use Your Seat Belt Or Car Seat Routinely? Yes [email or web address] Information not available 02/15/2025 Do You Have Smoke And Carbon Monoxide Detectors In Your Home? Yes Information not available 02/15/2025 At What Age Did You Start Smoking Tobacco? 14 Information not available 04/28/2023 How Much Tobacco Do You Smoke? 0.25 PPD Information not available 04/28/2023 Do You Use Sunscreen Routinely? No [email or web address] Information not available 02/15/2025 How Many Years Have You Smoked Tobacco? 16 Information not available 02/15/2025 Have You Used IV Drugs? No [email or web address] Information not available 02/15/2025 Sex: Unknown Functional Status Question Answer Note LastModified by Organizat ion Details LastModified Time Do you use any illicit or recreational drugs? No [email or web address] Information not available 02/15/2025 What is your level of alcohol consumption? Occasional [email or web address] Information not available 02/15/2025 Are you able to walk? 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 Occasional [email or web address] Information not available 02/15/2025 Mental Status Question Answer Note LastModified by Organization D etails LastModified Time Do you feel stressed (tense, restless, nervous, or anxious, or unable to sleep at night)? [id number] [email or web address] Information not available 02/15/2025 Family History Relationship Description Onset Age of [...] Y Anemia Y Gynecological History Statement/Question Response Abnormal Pap Y Date of LMP 04/13/2023 On BCP's at Conception? Y N Was last menstrual period normal N STIs/STDs N HPV Vaccine Y Duration of Flow (days) 8 Current Control Method Hysterectom y Age at First Child 19 Frequency of Cycle (Q days) 8 Sexually Active? Y Hysterectomy Age of first menstrual cycle 12 Date of Last Pap Smear Sexual Problems? N LMP Approximate N Obstetrics History GPAL:G 2 P 1 0 1 1 Type Value Full Term 1 Induced 1 Living 1 Total 2 Past Encounters Encounter ID Performer Location Encounter Start Date Encounter Closed Date Diagnosis/Indication Diagnosis SNOMED-CT Code Diagnosis ICD10 Code Diagnosis Note [id number] Brian Schwab MD [facility] [address] [address] 04/28/2023 09:33:35 04/28/2023 11:02:55 Menorrhagia 097584586 N92.0 Dysmenorrhea 161130512 N 94.6 37-year-ol d female with severe [...] include IUD and oral contracept cristel pills. [id number] Brian Schwab MD [facility] [address] [address] 05/06/2023 10:13:58 05/06/2023 11:18:26 Menorrhagia 899065125 N92.0 N94.6 [id number] Brian Schwab MD [facility] [address] [address] 05/07/2023 15:13:11 05/07/2023 16:26:33 Menorrhagia 606132247 N92.0 N94.6 This patient is a 37-year-ol [...] More than 50% was counseling . Dysmenorrhea 745527965 N 94.6 Pain in pelvis 29051366 R10.2 Dyspareunia 97618643 N94 .10 [id number] Brian Schwab MD [facility] [address] [address] 07/02/2023 13:40:57 07/03/2023 08:51:01 Menorrhagia 365629001 N92.0 N94.6 this patient is a 37-year-ol d female with severe menorrhagi a. We have agreed to perform robotic assisted hysterecto my with bilateral salpingect ashanti. She understand s the risks, benefits, and alternativ es. She is completed the informed consent process and is ready to proceed. [id number] Brian Schwab MD [facility] [address] [address] 07/16/2023 13:45:12 07/16/2023 17:14:27 Postoperative care 583760226 Z48.89 this patient is a 37-year-ol dfemale [...] sis with severe scarring of left adnexa. [id number] Brian Schwab MD [facility] [address] [address] 07/23/2023 17:18:00 07/24/2023 08:44:39 Postoperative abdominal pain 3913427476 7939917 R10.9 37-year-ol d female who is 2 [...] , evaluation of GI tract, imaging, labs. [id number] Brian Schwab MD [facility] [address] [address] 07/24/2023 12:23:17 07/24/2023 12:30:47 [id number] Brian Schwab MD [facility] [address] [address] 08/01/2023 16:00:25 08/03/2023 09:54:12 Postoperative care 063681680 Z48.89 38-year-ol d female who presents for [...] stool softeners. She will follow-up as needed. [id number] Brian Schwab MD [facility] [address] [address] 02/15/2025 09:55:11 02/15/2025 12:40:47 Rectal hemorrhage 50655409 K62.5 Patient reports intermitte nt episodes of rectal bleeding and diarrhea every 1-2 months since [facility] in 2022.Patibri gonzalez also had left oophorecto my and extensive adhesiolys is on left side for endometrio sis with severe scarring of left adnexa. Per post-op report, rectum and anterior lower pelvis w/ posterior deep cul-de-sac obliterate d. Patient was seen in the ER two weeks post-op due to painful bowel movements and had normal CT scan; GI determined that she did not need a colonoscop y at that time.Discu ssed that these symptoms need further evaluation and GI referral sent to [facility].Disc ussed that consult with endometrio sis specialist may also be considered with patient's extensive history. Patient desires to see GI first and then decide.ER precaution s given. Well woman health examination 744333804 Z01.419 Annual gynecologi vj exam performed. Patient will come back in a year unless there are new symptoms. Suggest Calcium with Vitamin D if not eating in diet. Patient advised to get annual flu shot. Recommend yearly physicals and perform monthly breast exams. Genetic testing is available for patients with family history of cancer. Engage in safe sexual practices, use condoms. Encouraged to have daily exercise. Avoid tobacco and illicit drugs, moderation of alcohol. If BMI greater than 25 dietary consult advised. If you have any questions please call or email. mammogram- order given, pt to schedule colon cancer screening - GI referral sent Pap smear- pap w/ HPV of vaginal cuff laboratory evaluation - PCP STI testing - declined Screening mammography 24 318348 Z12.31 Health Concerns Section Related Observation LastModified by Organization Detai ls LastModified Time None Recorded Concern Status LastModified by Organization Details LastModified Time None Recorded Advance Directives Directive None Recorded Payers Insurance Date Sequence Insurance Name Policy Number Policy Moore Covered Member ID Moore Member ID Guarantor Name 02/15/2025 1 [place] [id number] Shirlene Price [id number] Shirlene Price 02/16/2025 2 [place] [id number] Girish Price [id number] Shirlene Price 04/28/2023 1 [place] 113 Shirlene Gunderson [id number] Shirlene Price Notes Date Note Type Note Provider Name and Address Organization Details Recorded Time 07/16/2023 text/html this patient is a 52-xysp-leisllmiq Patient presents for postop follow-up. She is 1 week postop from a total laparoscopic hysterectomy bilateral salpingectomy. She has no complaints. Her incisions are clean dry and intact. She is recovering normally. She will follow-up as needed. patient also had left oophorectomy and extensive adhesiolysis on left side for endometriosis with severe scarring of left adnexa. Brian Schwab MD [address], [place], [address], [facility] 07/16/2023 16:59:12 07/23/2023 text/html 37-year-old aristeo [...] tract, imaging, labs. Brian Schwab MD [address], [place], [address], [facility] 07/23/2023 21:30:15 08/01/2023 text/html 38-year-old aristeo [...] follow-up as needed. Brian Schwab MD [address], [place], [address], [facility] 08/01/2023 17:10:43 02/15/2025 text/html Annual GYNReport ed bypatient.History:n o gynecologic complaints Menstrual cycle:Normal menses Urinary symptoms:No hematuria; No incontinence Vulva:No genital lesion Vagina:Normal vaginal discharge Breast:No breast pain; No breast lump; No nipple discharge Sexual complaints:No sexual complaints; No pain during intercourse; Normal libido Menopausal Symptoms:No menopausal symptoms; Normal vaginal lubrication Psychological symptoms:No depression; No anxiety; No PMDD Patient presents for annual exam.Patient hx of TLH with LSO in 2022 due to endometriosis.Eveliae nt reports that she still has rectal cramping and episodes of diarrhea every few months since the surgery. Patient states that she notices bright red blood in the toilet for a few days when these episodes occur. Neg pain of abd/pelvis/flankNeg urinary sx'sNeg GI sx'sNeg N/V/F/C/DNeg Vag d/c, odor, irritation, itching Patient history of TLH, bilateral salpingectomy in 2022. Patient also had left oophorectomy and extensive adhesiolysis on left side for endometriosis with severe scarring of left adnexa. Per post-op report, rectum and anterior lower pelvis w/ posterior deep cul-de-sac obliterated. Patient was seen in the ER two weeks post-op due to painful bowel movements, had normal CT scan, GI determined that she did not need a colonoscopy at that time. DAISY BOOTH NP [address], [place], [address], [facility] 02/15/2025 12:38:41 OBGyn Episode Ob Episode Information Episode Created Date Number of Fetuses Patient Bloodtype Patient rh Status Prepregnancy Weight lbs Domestic Partner Domestic Partner Phone Father Name Or Nurse Manager Status 04/28/20 23 1 CLOSED Fetus Data First Name Last Name Admitted to NICU Weight (g) Sex Living Outcome Pediatric Complications Fetus ID Race Codes Race Delivery Type 9793.07 2704 F Prematur e [id number] Primary Akash Calculation Initial Akash Date Initial [...] Domestic Partner Domestic Partner Phone Father Name Or Nurse Manager Status 04/28/20 23 1 CLOSED Fetus Data First Name Last Name Admitted to NICU Weight (g) Sex Living Outcome Pediatric Complications Fetus ID Race Codes Race Delivery Type , Induced [id number] Akash Calculation Initial Akash Date Initial Exam [...]
--- OUTSIDE RECORDS SUMMARY | 2025-02-25 07:51 | XMS_ITS | Clinical Summary ---
Author Organization [facility] Address [address] [place] [address] Care Team Providers Care Public Area Attendant Name Role Phone Unavailable Primary Care Provider Unavailabl e Social History Tobacco Use Types Packs/Day Years Used Date Smoking Tobacco: Never Assessed Comments Unknown Sex and Gender Information Value Date Recorded Sex Assigned at Not on file Legal Sex Female 6:28 PM CDT Gender Identity Not on file Sexual Orientation Not on file Plan of Treatment Upcoming Encounters Date Type Department Care Team (Late st Contact Info) Description 03/09/2025 8:20 AM CDT Office Visit [facility] Family Medicine - [place] [address] Temo Mabry MD [address] [place] [address] [phone] Health Maintenance Due Date Last Done Comments Cervical Cancer Screening Pa p Smear (Age 30 to 64) Every 3 Years 1983 Annual Physical 1986 Hepatitis C 2001 DTaP, Tdap and Td Vaccines ( 1 - Tdap) 2002 Hepatitis B Vaccines (1 of 3 - 19+ 3-dose series) 2002 Cervical Cancer Screening Pa p with HPV Testing (Age 30 to 64) Every 5 Years 2013 Cervical Cancer Screening with HPV 2013 Mammogram Screening 2023 COVID-19 Vaccine ( - 2023-2 5 season) 2024 HPV Vaccines Aged Out No longer eligi ble based on patient's age to complete this topic Meningococcal B Vaccine Aged Out No l onger eligible based on patient's age to complete this topic Meningococcal Vaccine Aged Out No geraldine corby eligible based on patient's age to complete this topic Pneumococcal Vaccine: Pediat rics (0 to 5 Years) and At-Risk Patients (6 to 49 Years) Aged Out No longer eligible b ased on patient's age to complete this topic RSV Immunizations Under 20 Months Aged Out No longer eligible based on patient's age to complete this topic Insurance [id number] [place] [address]
--- OUTSIDE RECORDS SUMMARY | 2025-02-25 07:51 | XMS_ITS | Clinical Summary ---
Author Organization [facility] Address [address] [place] [address] Care Team Providers Care Help Desk Support Name Role Phone Unavailable Primary Care Provider Unavailabl e Source Comments [facility],non-owned Affiliates and Associated Physician Practices is amultiple site organization consisting of ambulatory clinics and hospital sitesin [place], [place], [place] and [place]. This disclosure is being madepursuant to the Care Everywhere program and may not contain all information available regarding this patient. 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
== END 2025-02-25 07:45 | disposition home or self-care (01) ==
LOC: CHSIMG 07:49
PROVIDERS: Visit Provider Student in an Organized Health Care Education/Training Program
DX: Z12.31 Encounter for screening mammogram for malignant neoplasm of breast (principal)
CPT/HCPCS: 77063; 77067

== ENCOUNTER 2025-04-26 00:10 | Day surgery (SDC) | payer BC, SELFPAY ==
[2025-04-12 15:27] VITALS: BMI 31.4
--- OUTSIDE RECORDS SUMMARY | 2025-04-26 00:12 | XMS_ITS | Encounter Summary ---
Author Organization [facility] Address [address] [place] [address] Care Team Providers Care Information Security Name Role Phone Temo Mabry MD Primary Care Provider [phone] Encounter Details Date Type Department Care Team (Late st Contact Info) Description 03/14/2025 Results Follow-Up [address] [phone] Temo Mabry MD [address] [place] [phone] CBC W/DIFF AUTOMATED, LIPID PANEL, COMPREHENSIVE METABOLIC PANEL, THYROID STIM HORMONE TSH Social History Tobacco Use Types Packs/Day Years Used Date Smoking Tobacco: Every Day Cigarettes 0.3 25.7 Started: 1999 Passive Smoke Exposure: Past Smokeless Tobacco: Never Alcohol Use Standard Drinks/Week Comments Yes 1.7 (1 standard drink = 0.6 oz p ure alcohol) occ PHQ-2 Answer Date Recorded Patient Health Questionnaire-2 Score 0 03/09/2025 Comments Unknown Sex and Gender Information Value Date Recorded Sex Assigned at Not on file Legal Sex Female 6:28 PM CDT Gender Identity Not on file Sexual Orientation Not on file documented as of this encounter Plan of Treatment Upcoming Encounters Date Type Department Care Team (Late st Contact Info) Description 06/14/2025 9:40 AM CDT Office Visit [address] [phone] Hellen Reeder PA-C [address] [place] [address] [place] [address] documented as of this encounter Visit Diagnoses Not on filedocumented in this encounter Care Teams Information Security Relationship Specialty Start Date End Date Temo Mabry MD [address] [place], [place] [id number] PCP - General FAMILY PRACTICE 03/09/25 documented as of this encounter
--- OUTSIDE RECORDS SUMMARY | 2025-04-26 00:12 | XMS_ITS | Clinical Summary ---
Author Organization [facility] Address [address] [place] [address] Care Team Providers Care Hand Blocker Name Role Phone Unavailable Primary Care Provider Unavailabl e Source Comments [facility],non-owned Affiliates and Associated Physician Practices is amultiple site organization consisting of ambulatory clinics and hospital sitesin [place], [place], [place] and [place]. This disclosure is being madepursuant to the Care Everywhere program and may not contain all information available regarding this patient. Last updated 18.[facility] Allergies Active Allergy Reactions Criticality Noted Date [...] on file Legal Sex Female 6:10 PM JAVA SDET Gender Identity Not on file Sexual Orientation [...] 2 - PCV) 2002 PAP SMEAR 2004 HPV VACCINE (1 - 3-dose SCDM series) 2010 DEPRESSION SCREENING 08/18/2024 COVID-19 VACCINE (1 - 2023-2 5 season) 2025 INFLUENZA VACCINE (#1) 2025 ZOSTER VACCINE (1 of 2) 2033 HIB VACCINE Aged Out No longer eligi ble based on patient's age to complete this topic MENINGOCOCCAL (Group B) VACC INE SHARED DECISION-MAKING Aged Out No longer eligibl e based on patient's age to complete this topic MENINGOCOCCAL GROUPS A/C/Y/W VACCINE Aged Out No longer eligible b ased on patient's age to complete this topic Insurance [facility]
--- OUTSIDE RECORDS SUMMARY | 2025-04-26 00:12 | XMS_ITS | Clinical Summary ---
Author Organization [facility] Address [facility] [place] [address] Care Team Providers Care [place] Former Name Role Phone Temo Mabry MD Primary Care Provider [phone] Allergies Active Allergy Reactions Criticality Noted Date Comments Cephalexin Hives Medium 05/23/2015 Sulfamethoxazole-Trimethoprim Hives Medium 2014 Medications albuterol sulfate HFA 108 (90 Base) MCG/ACT inhaler INHALE 2 PUFFS BY MOUTH EVERY 4 HOURS NEEDED FOR DIFFICULT BREATHING Active Encounters Date Type Department Care Team Description 03/14/2025 Results Follow-Up [address] [phone] Temo Mabry MD CBC W/DIFF AUTOMATED, LIPID PANEL, COMPREHENSIVE METABOLIC PANEL, THYROID STIM HORMONE TSH 03/09/2025 8:20 AM CDT Office Visit [address] [phone] Temo Mabry MD Meet and Greet Provider (Patient is present to establish care with the provider) 03/09/2025 Travel from Last 3 Months Family History Medical History Relation Comments No Known Problems Father No Known Problems Mother Relation Status Comments Father Alive Mother Alive Social History Tobacco Use Types Packs/Day Years Used Date Smoking Tobacco: Every Day Cigarettes 0.3 25.7 Started: 1999 Passive Smoke Exposure: Past Smokeless Tobacco: Never Tobacco Cessation:Ready to Q uit: No; Counseling Given: No Alcohol Use Standard Drinks/Week Comments Yes 1.7 [...] Sign Reading Time Taken Comments Blood Pressure 130/80 03/09/2025 8:53 AM CDT Pulse 97 03/09/2025 8:28 AM CDT Temperature 37.2 C (99 F) 03/09/2025 8:28 AM CDT Respiratory Rate - - Oxygen Saturation 100% 03/09/2025 8:28 AM CDT Inhaled Oxygen Concentration - - Weight 97.5 kg (215 lb) 03/09/2025 8:28 AM CDT Height 170.2 cm (5' 7) 03/09/2025 8:28 AM CDT Body Mass Index 33.67 03/09/2025 8:28 AM CDT Plan of Treatment Upcoming Encounters Date Type Department Care Team (Late st Contact Info) Description 06/14/2025 9:40 AM CDT Office Visit [facility] - [place] [address] [place] [phone] Hellen Reeder PA-C [address] [place] [address] Health Maintenance Due Date Last Done Comments Annual Physical 1986 Hepatitis C 2001 DTaP, Tdap and Td Vaccines ( 1 - Tdap) 2002 Hepatitis B Vaccines (1 of 3 - 19+ 3-dose series) 2002 Pneumococcal Vaccine: Pediat rics (0 to 5 Years) and At-Risk Patients (6 to 49 Years) (1 of 2 - PCV) 2002 HPV Vaccines (1 - 3-dose SCD M series) 2010 Mammogram Screening 2023 COVID-19 Vaccine ( - 2023-2 5 season) 2025 PHQ-2 (Physician Lummi) Completed 03/09/2025 Meningococcal B Vaccine Aged Out No l onger eligible based on patient's age to complete this topic Meningococcal Vaccine Aged Out No geraldine corby eligible based on patient's age to complete this topic RSV Immunizations Under 20 Months Aged Out No longer eligible based on patient's age to complete this topic Procedures Procedure Name Priority Date/Time Associated Diagnosis Comments THYROID STIM HORMONE TSH Routine 03/10/2025 7:16 AM CDT Encounter for well adult exam without abnormal findings COMPREHENSIVE METABOLIC PANEL Routine 03/10/2025 7:16 AM CDT Encounter for well adult exam without abnormal findings LIPID PANEL Routine 03/10/2025 7:16 AM CDT Encounter for well adult exam without abnormal findings CBC W/DIFF AUTOMATED Routine 03/10/2025 7:16 AM CDT Encounter for well adult exam without abnormal findings from Last 3 Months Results * (ABNORMAL) COMPREHENSIVE METABOLIC PANEL (03/10/2025 7:16 AM CDT) [facility] GLUCOSE 113(H) 65 - 99 mg/dL [place] Comment: Fasting reference interval For someone without known diabetes, a glucose value between 100 and 125 mg/dL is consistent with prediabetes and should be confirmed with a follow-up test. BUN 12 7 - 25 mg/dL [place] CREATININE S/P/B 0.74 0.50 - 0.99 mg/dL [place] GFR ESTIMATE 104 > OR = 60 mL/min/1. 73m2 [place] BUN CREATININE RATIO SEE NOTE: (calc) [place] Comment: Not Reported: BUN and Creatinine are within reference range. SODIUM S/P/B 141 135 - 146 mmol/L [place] POTASSIUM S/P/B 3.7 3.5 - 5.3 mmol/L [place] CHLORIDE S/P/B 109 98 - 110 mmol/L [place] CO2 24 20 - 32 mmol/L [place] CALCIUM S/P/B 9.4 8.6 - 10.2 mg/dL [place] TOTAL PROTEIN S/P/B 6.5 6.1 - 8.1 g/dL [place] ALBUMIN S/P/B 4.3 3.6 - 5.1 g/dL [place] GLOBULIN 2.2 1.9 - 3.7 g/dL (calc) [place] ALBUMIN/GLOBULIN RATIO 2.0 1.0 - 2.5 (calc) [place] BILIRUBIN TOTAL S/P/B 0.5 0.2 - 1.2 mg/dL [place] ALKALINE PHOSPHATASE S/P/B 53 31 - 125 U/L [place] AST 15 10 - 30 U/L [place] ALT 29 6 - 29 U/L [place] 03/10/2025 7:16 AM CDT 03/10/2025 7:18 AM CDT Narrative [facility] [place] - 03/10/2025 5:05 PM CDT FASTING:YES FASTING: YES Resulting Agency Comment Performing Organization Information: Site ID: Name: [facility] Address: [address] [place] [id number] Director: Eddie Guevara Temo Mabry MD LABORATORY Final Result [facility] [place] [facility] [address] [phone], * LIPID PANEL (03/10/2025 7:16 AM CDT) CHOLESTEROL 165 <200 mg/dL [place] HDL 52 > OR = 50 mg/dL [place] TRIGLYCERIDES 129 <150 mg/dL [place] LDL (CALCULATED) 90 mg/dL (calc) [place] Comment: Reference range: <100 Desirable range <100 mg/dL for primary prevention; <70 mg/dL for patients with CHD or diabetic patients with > or = 2 CHD risk factors. LDL-C is now calculated using the Reji calculation, which is a validated novel method providing better accuracy than the Friedewald equation in the estimation of LDL-C. Suhail HACKETT et al. MICHAEL. 2013;310(19): 2366-2470 (http://education.inkSIG Digital/faq/SRS009) CHOL/HDL RATIO 3.2 <5.0 (calc) [place] NON HDL CHOLESTEROL 113 <130 mg/dL (calc) [place] Comment: For patients with diabetes plus 1 major ASCVD risk factor, treating to a non-HDL-C goal of <100 mg/dL (LDL-C of <70 mg/dL) is considered a therapeutic option. 03/10/2025 7:16 AM CDT 03/10/2025 7:18 AM CDT Narrative [facility] [place] - 03/10/2025 5:05 PM CDT FASTING:YES FASTING: YES Resulting Agency Comment Performing Organization Information: Site ID: [id number] Name: [facility] Address: [address] [place] [id number] Director: Eddie Guevara Temo Mabry MD LABORATORY Final Result [facility] [address] [address], * (ABNORMAL) CBC W/DIFF AUTOMATED (03/10/2025 7:16 AM CDT) WBC 7.1 3.8 - 10.8 Thousand/u L [facility] RBC 4.86 3.80 - 5.10 Million/uL [place] HGB 14.9 11.7 - 15.5 g/dL [place] HCT 45.6(H) 35.0 - 45.0 % [place] MCV 93.8 80.0 - 100.0 fL [place] MCH 30.7 27.0 - 33.0 pg [place] MCHC 32.7 32.0 - 36.0 g/dL [place] Comment: For adults, a slight decrease in the calculated MCHC value (in the range of 30 to 32 g/dL) is most likely not clinically significant; however, it should be interpreted with caution in correlation with other red cell parameters and the patient's clinical condition. RDW 13.1 11.0 - 15.0 % [place] PLT 182 140 - 400 Thousand/u L [place] MPV 12.6(H) 7.5 - 12.5 fL [place] ABS. NEUTROPHILS 3,855 1,500 - 7,800 cells/uL [place] ABS. LYMPHOCYTES 2,371 850 - 3,900 cells/uL [place] ABS. MONOCYTES 511 200 - 950 cells/uL [place] ABS. EOSINOPHILS 320 15 - 500 cells/uL [place] ABS. BASOPHILS 43 0 - 200 cells/uL [place] SEG NEUTROPHILS 54.3 % [place] LYMPHOCYTES 33.4 % [place] MONOCYTES 7.2 % [place] EOSINOPHILS 4.5 % [place] BASOPHILS 0.6 % [place] 03/10/2025 7:16 AM CDT 03/10/2025 7:18 AM CDT Narrative [facility] [place] - 03/10/2025 5:05 PM CDT FASTING:YES FASTING: YES Resulting Agency Comment Performing Organization Information: Site ID: [id number] Name: [facility] Address: [address] [place] [address] Director: Eddie Guevara Temo Mabry MD LABORATORY Final Result [facility] [place] [facility] [phone], * THYROID STIM HORMONE TSH (03/10/2025 7:16 AM CDT) TSH 1.37 mIU/L [facility] Comment: Reference Range > or = 20 Years 0.40-4.50 Ranges First trimester 0.26-2.66 Second trimester 0.55-2.73 Third trimester 0.43-2.91 03/10/2025 7:16 AM CDT 03/10/2025 7:18 AM CDT Narrative [facility] [place] - 03/10/2025 5:05 PM CDT FASTING:YES FASTING: YES Resulting Agency Comment Performing Organization Information: Site ID: [id number] Name: [facility] Address: [address] [place] [address] Director: Eddie Guevara us Temo Mabry MD LABORATORY Final Result [facility] [place] [facility] [address] [place] [address], [place] from Last 3 Months Insurance [employer] [place] [email or web address] Care Teams [place] Former Relationship Specialty Start Date End Date Temo Mabry MD [address] [place], [place] [id number] PCP - General FAMILY PRACTICE 03/09/25
[2025-04-26 10:49] VITALS: BP 120/80; PULSE 103; RESP 18; TEMP 36.3; O2SAT 100; BMI 33.4
--- NOTE | 2025-04-26 10:59 | WPDANESEPPF ---
Anes - Initial Pre Proc Eval Procedure: Operation Date: 04/26/25 12:30 Proposed Procedures p Diagnostic Colonoscopy - Harrison Quiñones MD Date/Time: 04/26/25 10:59 Surgeon: Harrison Quiñones MD Pre Op Diagnosis: Constipation, unspecified Patient Data Age: 39 Gender: F Height: 1.7 m Weight: 91 kg Allergies Allergy/AdvReac Type Severity Reaction Status Date / Time Sulfa (Sulfonamide Allergy Mild Hives Verified 04/12/25 15:05 Antibiotics) sulfamethoxazole Allergy Mild Hives Verified 04/12/25 15:05 cephalexin Allergy Unknown Hives Verified 04/12/25 15:05 sulfamethizole Allergy Unknown Hives Verified 04/12/25 15:05 trimethoprim Allergy Unknown Hives Verified 04/12/25 15:05 Home Medications ?Medication ?Instructions ?Recorded ?Confirmed ?Type cetirizine 10 mg tablet (Zyrtec) 10 mg PO DAILY 07/02/23 04/12/25 History dextromethorphan-guaifenesin ER 60 1 tablet PO Q12H PRN Sinus Symptoms 07/02/23 04/12/25 History mg-1,200 mg tab,extend release,12hr (Mucinex DM) albuterol sulfate 90 mcg/actuation inhalation 04/12/25 History aerosol inhaler naproxen 250 mg tablet 250 mg PO DAILY 04/12/25 04/12/25 History Patient hx anesthesia problems: none Family hx anesthesia problems: none Results Review: All pre-operative results and documents have been reviewed as part of the pre-operative evaluation. [facility] Past Medical History Medical History (Updated 04/26/25 @ 10:59 by Lloyd Blakely MD) Obesity Surgical History Surgical History (Updated 04/26/25 @ 10:59 by Lloyd Blakely MD) H/O: hysterectomy Family History Family History Father Family history of mental disorder Patient's father is in good health Grandparent Hypertension Mother Patient's mother is in good health Social History Social History Years smoked: 20 Smoking status: Current every day smoker Tobacco type: cigarettes Alcohol intake: never Alcohol use details: VERY RARE Substance use: never Substance use type: does not use Do You Feel Safe in your Home?: Yes Lack of Transportation: No Lack of Food: Never True Current Housing: I Have Housing Concerned About Future Housing: No Difficulty Paying Gas/Electric Bills: No Difficulty Paying for Meds: No Currently Unemployed: No Education: High School Diploma/GED Difficulty w/ Childcare or Family Care: No Living arrangements: with family Gender identity (if verbalized by the patient): Female Spiritual care concerns: No Anes - Eval Final PreProcedure Day of Procedure 04/26/25 10:59 Patient weight: obese Heart: regular rate and rhythm Lungs: clear to auscultation Airway: Mallampati scale class II Neurological: alert and oriented Last oral intake: >/= 8 hours ASA classification: III Emergent: no Anesthetic plan: proceed Anesthesia type and monitoring: general GIVS and standard monitoring Results Review: All pre-operative results and documents have been reviewed as part of the pre-operative evaluation. Informed Consent: The patient's anesthetic plan and its attendant risks and benefits were discussed with the patient/family/POA. Questions were solicited and answers provided to the satisfaction of the patient/family/POA.
[2025-04-26] MEDS: LACTATED RINGERS 1,000 ML 150 ML IV CONT (11:06)
--- NOTE | 2025-04-26 11:11 | PM.HPGS ---
History of Present Illness History of Present Illness Consent: Risks, benefits, and alternatives have been discussed and questions answered. Patient agrees to proceed with procedure. Chief complaint: Constipation, unspecified Narrative: Shirlene Price is a 39 year old female with intermittent lower abdominal pain, h/o hysterectomy and endometriosis, this is her first colonoscopy. Review of Systems Review of Systems: All systems reviewed & are unremarkable except as noted in HPI and below PMFSH Past Medical History Medical History (Updated 04/26/25 @ 10:59 by Lloyd Blakely MD) Obesity Surgical History Surgical History (Updated 04/26/25 @ 10:59 by Lloyd Blakely MD) H/O: hysterectomy Family History Family History Father Family history of mental disorder Patient's father is in good health Grandparent Hypertension Mother Patient's mother is in good health Social History Social History Years smoked: 20 Smoking status: Current every day smoker Tobacco type: cigarettes Alcohol intake: never Alcohol use details: VERY RARE Substance use: never Substance use type: does not use Do You Feel Safe in your Home?: Yes Lack of Transportation: No Lack of Food: Never True Current Housing: I Have Housing Concerned About Future Housing: No Difficulty Paying Gas/Electric Bills: No Difficulty Paying for Meds: No Currently Unemployed: No Education: High School Diploma/GED Difficulty w/ Childcare or Family Care: No Living arrangements: with family Gender identity (if verbalized by the patient): Female Spiritual care concerns: No Meds Home Medications and Allergies Home Medications ?Medication ?Instructions ?Recorded ?Confirmed ?Type cetirizine 10 mg tablet (Zyrtec) 10 mg PO DAILY 07/02/23 04/12/25 History dextromethorphan-guaifenesin ER 60 1 tablet PO Q12H PRN Sinus Symptoms 07/02/23 04/12/25 History mg-1,200 mg tab,extend release,12hr (Mucinex DM) albuterol sulfate 90 mcg/actuation inhalation 04/12/25 History aerosol inhaler naproxen 250 mg tablet 250 mg PO DAILY 04/12/25 04/12/25 History Allergies Allergy/AdvReac Type Severity Reaction Status Date / Time Sulfa (Sulfonamide Allergy Mild Hives Verified 04/12/25 15:05 Antibiotics) sulfamethoxazole Allergy Mild Hives Verified 04/12/25 15:05 cephalexin Allergy Unknown Hives Verified 04/12/25 15:05 sulfamethizole Allergy Unknown Hives Verified 04/12/25 15:05 trimethoprim Allergy Unknown Hives Verified 04/12/25 15:05 Vital Signs Vital Signs - 24 hr 04/26/25 10:49 Temperature 97.3 F L Pulse Rate 103 H Respiratory Rate 18 Blood Pressure 120/80 Pulse Oximetry 100 Oxygen Delivery Room Air Assessment and Plan Assessment and plan (1) Abdominal pain: Code(s): R10.9 - Unspecified abdominal pain Status: Acute Assessment and Plan: colonoscopy (2) Endometriosis: Code(s): N80.9 - Endometriosis, unspecified Status: Acute
--- NOTE | 2025-04-26 11:20 | S_PTH ---
PATIENT: Shirlene Price LOC: [facility]her#:[id number] AGE/SX: 39/F ROOM: RE04/26/[address]: Harrison Quiñones MD : 1985 BED: DIS: 04/26/2025 SPEC #: [id number] RECD: 04/26/25 11:37 STATUS: TYRELL HECK #: [id number] EVGENY: 04/26/25 11:[address]: Harrison Quiñones DEPT: [facility] Surgical RECD BY: Griselda Carrera Tissues: A - Colon Polypectomy B - Colon Biopsy Procedures: Hematoxylin and Eosin Stain Gross and Microscopic Level 4
[2025-04-26 11:30] VITALS: BP 128/89; PULSE 94; RESP 20; O2SAT 100
[2025-04-26 11:40] VITALS: BP 122/80; PULSE 86; RESP 24; O2SAT 100
[2025-04-26 11:50] VITALS: BP 123/82; PULSE 83; RESP 23; O2SAT 100
== END 2025-04-26 11:59 | disposition home or self-care (01) ==
PROVIDERS: Referring Provider Student in an Organized Health Care Education/Training Program; Visit Provider Internal Medicine Gastroenterology
PROC: 0DJD8ZZ Inspection of Lower Intestinal Tract, Via Natural or Artificial Opening Endoscopic (ICD-10-PCS; CPT 45378; principal; 2025-04-26 12:30)
DX: K63.5 Polyp of colon (principal); K64.8 Other hemorrhoids; N80.9 Endometriosis, unspecified; F17.210 Nicotine dependence, cigarettes, uncomplicated; E66.9 Obesity, unspecified; Z68.33 Body mass index [BMI] 33.0-33.9, adult; Z79.51 Long term (current) use of inhaled steroids; Z79.1 Long term (current) use of non-steroidal anti-inflammatories (NSAID); Z98.890 Other specified postprocedural states
CPT/HCPCS: 45385; 45380; 88305; J2003; J2704; J7120